=== PATIENT | male | born 1945 | race Caucasian/White ===

== ENCOUNTER → 2018-02-21 | Outpatient (CLI) | payer OTHER ==
[2016-10-31 16:07] VITALS: BP 136/63
[~2018-02-21] MED LIST: NS 100 ML IV 100 ML IV ONE
--- NOTE | 2018-02-21 13:04 | CT ---
CT OF THE ABDOMEN AND PELVIS WITH CONTRAST HISTORY: Abdominal pain with history of esophageal cancer Comparison: None Technique: Multiple axial images of the abdomen and pelvis were obtained from the lung bases to the pubic symphy sis follow the administration of IV contrast as well as oral contrast. Dose reduction techniques inc luding Automated Exposure Control (AEC) and adjustment of mA and kV were utlized. Findings: The heart is normal in size. There is no pericardial effusion. Lung bases are clear without focal con solidation, pleural effusion or pneumothorax. Status post esophagectomy with gastric pull-through. I n the region of the diaphragmatic hiatus there are some shotty lymph nodes including a 2.2 cm lymph n ode on series 4, image 27. Liver and spleen are normal in size, enhancement characteristics and contour. No focal lesions. The p ortal vein is patent. No ductal dilitation. Gallbladder is present. No calcified gallstones or gallbl adder wall thickening. The pancreas is unremarkable. The right adrenal gland is thickened and nodular .. Kidneys enhance symmetrically without hydronephrosis or nephrolithiasis. No bowel obstruction or inflammation. Diverticulosis without definite focal inflammation. IVC filter in place No abnormal appearing mesenteric or retroperitoneal lymph nodes. No free fluid or fluid ivan ections. The bladder is normal in appearance. Prostate not enlarged. No free fluid or abnormal pelvic lymph no michael. No aggressive osseous lesions. IMPRESSION: 1. Status post gastric pull-through with upper abdominal lymph nodes and right adrenal nodularity. T hese findings are nonspecific and malignancy cannot be excluded. Would recommend obtaining prior exam inations for comparison. If priors could be obtained, an addendum could be dictated. Reported By:
== END ==
LOC: RAD 10:34
PROVIDERS: ATTEND Internal Medicine
DX: R10.84 Generalized abdominal pain (principal); C15.5 Malignant neoplasm of lower third of esophagus
CPT/HCPCS: 74177; A4222

== ENCOUNTER 2018-11-03 10:30 | Inpatient (IN) ==
[2018-11-03 12:14] LABS: BASOPHILS # (AUTO) 0.1 X10^3/uL (0.0-0.1); BASOPHILS % (AUTO) 0.6 % (0.2-1.0); EOSINOPHILS # (AUTO) 0.2 x10^3/uL (0.0-0.2); EOSINOPHILS % (AUTO) 0.7 % (0.9-2.9); HEMATOCRIT 39.1 % (42.0-54.0); LYMPHOCYTES # (AUTO) 2.6 X10^3/uL (1.3-2.9); LYMPHOCYTES % (AUTO) 12.9 % (21.0-51.0); MEAN CORPUSCULAR HEMOGLOBIN 31.3 pg (27.0-34.0); MEAN CORPUSCULAR HGB CONC 33.2 g/dL (33.0-35.0); MEAN CORPUSCULAR VOLUME 94.3 fL (80.0-100.0); MONOCYTES % (AUTO) 4.8 % (0.0-13.0); NEUTROPHILS # (AUTO) 16.4 x10^3/uL (2.2-4.8); PLATELET COUNT 212 X10^3/uL (150.0-450.0); RED BLOOD COUNT 4.15 X10^6/uL (4.7-6.0); RED CELL DISTRIBUTION WIDTH 14.9 % (11.6-16.5); WHITE BLOOD COUNT 20.3 X10^3/uL (3.6-10.0)
[2018-11-03] MEDS ORDERED: ZOFRAN INJ 4 MG VIAL IVP ONE (12:19)
--- NOTE | 2018-11-03 12:19 | RAD ---
HISTORY: Abdominal pain, constipation. Study: KUB Comparison: 08/08/2016. Findings: An IVC filter is present extending from the mid L1 to the mid L3 levels. There is an 8.7 mm calcific density seen just lateral to the transverse process of L1 on the right. This may be within the kidney , gallbladder or may be vascular. Bowel gas pattern is nonspecific. There is a 7.6 cm rectal fecal impaction. No bowel obstruction is identified. Degenerative changes are present at multiple lumbar levels. IMPRESSION: No bowel obstruction is seen. 7.6 cm rectal fecal impaction. 8.7 mm calcific density just lateral to the transverse process of L1 on the right. This may be present within the kidney, gallbladder or may be vascular. Reported By:
[2018-11-03 12:23] LABS: ALANINE AMINOTRANSFERASE 17 Units/L (12-78); ALBUMIN 3.5 g/dL (3.4-5.0); ALKALINE PHOSPHATASE 72 Units/L (46-116); ASPARTATE AMINO TRANSFERASE 13 Units/L (15-37); BLOOD UREA NITROGEN 12 mg/dL (7-18); CALCIUM 9.3 mg/dL (8.5-10.1); CARBON DIOXIDE 25.2 mmol/L (21-32); CHLORIDE 91 mmol/L (98-107); CREATININE 0.75 mg/dL (0.70-1.30); SODIUM 126 mmol/L (136-145); TOTAL PROTEIN 7.5 g/dL (6.4-8.2); eGFR NON BLACK RACES > 60 (>60)
[2018-11-03] MEDS ORDERED: ZOFRAN INJ 4 MG VIAL ONE (12:23)
[2018-11-03] MEDS: NS 1000 ML 1,000 ML IV SCH ×2 (12:28→22:50)
--- NOTE | 2018-11-03 12:33 | DR.N/VMALE ---
HPI Time Seen Time Seen by Provider: 11/03/18 11:38 Primary Care Physician Primary Care Physician: YOHANNES ASHRAF Complaints Chief Complaint:: PT C/O HAVING A BOWEL BLOCKAGE FOR SEVERAL WEEKS, AND HE C/O DRINKING 6 BOTTLES OF MAGCITRATE , PT C/O HAVING NAUSEA, BR Self Treatment fo Chief Complaint: PT IS MOANING AND HE CANT TAKE THIS PAIN,,BR Source History Provided: Patient Mode of Arrival Mode of Arrival: Wheelchair Timing Onset of Chief Complaint: 10/14/18 PMH PMH Past Medical History: Yes Past Medical History: Dyslipidemia and Hypertension Past Surgical History: Yes Past Surgical History Comment: ABD CANCER Family History History of Family Medical Conditions: Yes Family Medical History: Heart Failure Social History Does patient currently use any type of tobacco product: No Have you used tobacco products in the last 12 months: No Type of Tobacco Use: None Does any household member use tobacco: No Alcohol Use: None Do you use any recreational Drugs:: No Lives With: Family Lives Where: Home infectious screening In the last 2 months have you had wt loss of >10#?: NO Have you had fever, night sweats or hemotysis?: No Have you traveled outside the country in the last 6 months?: No Isolation: Standard PE Vital Signs Vitals: Temperature 98.1 F Pulse Rate [Right Brachial] 86 Pulse Rate 107 Respiratory Rate 18 Blood Pressure [Right Arm] 119/61 Blood Pressure [Left Arm] 136/63 Blood Pressure 111/55 O2 Sat by Pulse Oximetry 97 ROR Labs Reviewed Laboratory Results Reviewed?: Yes Result Diagrams: 11/03/18 11:53 11/03/18 11:53 Laboratory: WBC 20.3 X10^3/uL (3.6-10.0) H 11/03/18 11:53 RBC 4.15 X10^6/uL (4.7-6.0) L 11/03/18 11:53 Hgb 13.0 g/dL (13.5-18.0) L 11/03/18 11:53 Hct 39.1 % (42.0-54.0) L 11/03/18 11:53 MCV 94.3 fL (80.0-100.0) 11/03/18 11:53 MCH 31.3 pg (27.0-34.0) 11/03/18 11:53 MCHC 33.2 g/dL (33.0-35.0) 11/03/18 11:53 RDW 14.9 % (11.6-16.5) 11/03/18 11:53 Plt Count 212 X10^3/uL (150.0-450.0) 11/03/18 11:53 MPV 8.0 fL (7.4-11.0) 11/03/18 11:53 Neut % (Auto) 81.0 % (42.0-75.0) H 11/03/18 11:53 Lymph % (Auto) 12.9 % (21.0-51.0) L 11/03/18 11:53 [place] % (Auto) 4.8 % (0.0-13.0) 11/03/18 11:53 Eos % (Auto) 0.7 % (0.9-2.9) L 11/03/18 11:53 Baso % (Auto) 0.6 % (0.2-1.0) 11/03/18 11:53 Neut # (Auto) 16.4 x10^3/uL (2.2-4.8) H 11/03/18 11:53 Lymph # (Auto) 2.6 X10^3/uL (1.3-2.9) 11/03/18 11:53 [place] # (Auto) 1.0 x10^3/uL (0.3-0.8) H 11/03/18 11:53 Eos # (Auto) 0.2 x10^3/uL (0.0-0.2) 11/03/18 11:53 Baso # (Auto) 0.1 X10^3/uL (0.0-0.1) 11/03/18 11:53 Absolute Nucleated RBC 0.0 /100WBC 11/03/18 11:53 INR Target Range - 11/03/18 11:53 INR 3.76 (0.8-1.3) H 11/03/18 11:53 Sodium 126 mmol/L (136-145) L 11/03/18 11:53 Corrected Sodium TNP 11/03/18 11:53 Potassium 5.0 mmol/L (3.5-5.1) 11/03/18 11:53 Chloride 91 mmol/L (98-107) L 11/03/18 11:53 Carbon Dioxide 25.2 mmol/L (21-32) 11/03/18 11:53 BUN 12 mg/dL (7-18) 11/03/18 11:53 Creatinine 0.75 mg/dL (0.70-1.30) 11/03/18 11:53 Est GFR (MDRD) Af Amer > 60 (>60) 11/03/18 11:53 Est GFR (MDRD) Non-Af > 60 (>60) 11/03/18 11:53 Glucose 82 mg/dL (65-99) 11/03/18 11:53 Calcium 9.3 mg/dL (8.5-10.1) 11/03/18 11:53 Corrected Calcium TNP 11/03/18 11:53 Total Bilirubin 0.80 mg/dL (0.2-1.0) 11/03/18 11:53 AST 13 Units/L (15-37) L 11/03/18 11:53 ALT 17 Units/L (12-78) 11/03/18 11:53 Alkaline Phosphatase 72 Units/L (46-116) 11/03/18 11:53 Total Protein 7.5 g/dL (6.4-8.2) 11/03/18 11:53 Albumin 3.5 g/dL (3.4-5.0) 11/03/18 11:53 Globulin 4.0 g/dL (2.5-4.5) 11/03/18 11:53 Albumin/Globulin Ratio 0.9 Ratio (1.1-2.1) L 11/03/18 11:53 Digoxin 1.09 ng/mL (0.9-2) 11/03/18 11:53 Other Results Comments: An IVC filter is present extending from the mid L1 to the mid L3 levels. There is an 8.7mm calcific density seen just lateral to the transv erse process of L1 on the right. This may be within the kidney, gallbladder or may be vascular. Bowel gas pattern is nonspecific. There is a 7.6cm rectal fecal impaction. No bowel obstruction is identified. Degenerative changes are present at multiple lumbar levels. Diagnosis Discharge Problem: Fecal impaction
[2018-11-03] MEDS ORDERED: PHENERGAN INJ 25 MG IV PRN (12:34)
[2018-11-03] MEDS ORDERED: ZOFRAN INJ 4 MG VIAL IVP PRN (12:34)
[2018-11-03] MEDS ORDERED: METHOTREXATE PO SCH (14:34)
[2018-11-03] MEDS: COLACE CAP 100 MG PO SCH (21:30)
[2018-11-03] MEDS: MILK OF MAGNESIA PO SCH (21:30)
[2018-11-03] MEDS: ZANTAC PO SCH (21:31)
[2018-11-03] MEDS: PROPAFENONE 325 MG PO SCH (21:44)
[2018-11-03] MEDS: NORCO 5/325 MG TAB PO PRN (22:50)
[2018-11-04 06:03] LABS: BASOPHILS # (AUTO) 0.1 X10^3/uL (0.0-0.1); BASOPHILS % (AUTO) 0.6 % (0.2-1.0); EOSINOPHILS # (AUTO) 0.2 x10^3/uL (0.0-0.2); EOSINOPHILS % (AUTO) 2.1 % (0.9-2.9); HEMATOCRIT 31.1 % (42.0-54.0); HEMOGLOBIN 10.6 g/dL (13.5-18.0); LYMPHOCYTES # (AUTO) 2.5 X10^3/uL (1.3-2.9); LYMPHOCYTES % (AUTO) 24.8 % (21.0-51.0); MEAN CORPUSCULAR HEMOGLOBIN 31.8 pg (27.0-34.0); MEAN CORPUSCULAR HGB CONC 34.1 g/dL (33.0-35.0); MEAN CORPUSCULAR VOLUME 93.3 fL (80.0-100.0); MEAN PLATELET VOLUME 8.3 fL (7.4-11.0); MONOCYTES % (AUTO) 10.1 % (0.0-13.0); NEUTROPHILS # (AUTO) 6.4 x10^3/uL (2.2-4.8); NEUTROPHILS % (AUTO) 62.4 % (42.0-75.0); PLATELET COUNT 142 X10^3/uL (150.0-450.0); RED BLOOD COUNT 3.33 X10^6/uL (4.7-6.0); RED CELL DISTRIBUTION WIDTH 14.9 % (11.6-16.5); WHITE BLOOD COUNT 10.2 X10^3/uL (3.6-10.0)
[2018-11-04 06:08] LABS: ALANINE AMINOTRANSFERASE 15 Units/L (12-78); ALBUMIN 2.7 g/dL (3.4-5.0); ALKALINE PHOSPHATASE 57 Units/L (46-116); ASPARTATE AMINO TRANSFERASE 13 Units/L (15-37); BLOOD UREA NITROGEN 9 mg/dL (7-18); CARBON DIOXIDE 25.8 mmol/L (21-32); CHLORIDE 95 mmol/L (98-107); CREATININE 0.59 mg/dL (0.70-1.30); SODIUM 128 mmol/L (136-145); TOTAL PROTEIN 5.7 g/dL (6.4-8.2); eGFR NON BLACK RACES > 60 (>60)
[2018-11-04] MEDS ORDERED: COUMADIN TAB 2.5 MG PO SCH (09:00)
[2018-11-04] MEDS: MILK OF MAGNESIA PO SCH ×2 (09:07→20:31)
[2018-11-04] MEDS: LANOXIN PO SCH (09:07)
[2018-11-04] MEDS: PROTONIX TAB 40 MG PO SCH (09:08)
[2018-11-04] MEDS: PROPAFENONE 325 MG PO SCH ×2 (09:12→20:30)
[2018-11-04 10:20] VITALS: BMI 17.7
--- NOTE | 2018-11-04 13:22 | RAD ---
HISTORY: Abdominal pain and constipation Study: Single flat view of the abdomen. Comparison: None Findings: Evaluation of the abdomen demonstrates a normal bowel gas pattern. No free air. No pathological soft tissue mass or calcification can be observed. The bony structures are grossly intact. IMPRESSION: 1. No evidence for acute abdominal pathology identified. Reported By:
--- NOTE | 2018-11-04 14:00 | DR.H&P ---
H&P - History & Physical for Day of: H&P Date: 11/03/18 - Chief Complaint Chief Complaint: abdominal pain, constipation - History of Present Illness History of Present Illness: 73 WM ER ADMISSION WITH CO LOWER ABDOMINAL PAIN WITH CO CONSTIPATION AND POOR APPETITE. PT HAS CHRONIC CONSTIPATION DUE TO OPIOID PAIN CONTROL. PT HAS PMH OF OA, HTN, AFIB. PT HAD CT ER WITH FECAL IMPACTION. PT ADMITTED FOR TREATMENT OF ACUTE ILLNESS. - Past Medical History Past Medical History: Hypertension, Dyslipidemia Additional Medical History: Atrial fibrillation, Esophageal Cancer, Chemo The rapy, DVT, PE - Past Surgical History Additional Surgical History: IVC filter - Family History Family Medical History: Heart Failure - Social History Does patient currently use any type of tobacco product: No Have you used tobacco products in the last 12 months: No Type of Tobacco Use: None Does any household member use tobacco: No Alcohol Use: None Drug Use: None - Medications Home Medications: No Known Drug Allergies Allergy (Verified 11/03/18 10:42) CONTINUE taking the following medications digoxin 0.125 mg PO DAILY 11/03/18 [History] pantoprazole 40 mg PO DAILY 11/03/18 [History] ranitidine HCl 150 mg PO HS 11/03/18 [History] tamsulosin 0.4 mg PO HS 11/03/18 [History] - Review of Systems Constitutional: Weakness Eyes: No Symptoms Reported ENT: No Symptoms Reported Respiratory: No Symptoms Reported Cardiovascular: No Symptoms Reported Gastrointestinal: Nausea, Vomiting, Abdominal Pain, Constipation Genitourinary: No Symptoms Reported Musculoskeletal: Back Pain Skin: No Symptoms Reported Neurological: No Symptoms Reported - Physical Exam Vital Signs: Temperature 97.8 F Pulse Rate [Right Brachial] 82 Pulse Rate 86 Respiratory Rate 20 Blood Pressure [Right Arm] 132/67 Blood Pressure [Left Arm] 136/63 Blood Pressure 111/55 O2 Sat by Pulse Oximetry 95 Oriented: Normal Eyes: Normal Ear: Normal Nose: Normal Throat: Normal Respiratory: Clear Throughout Cardiovascular: Normal : Normal Auscultation: Bowel Sounds: Normal Palpation: Normal Tenderness: Normal Skin: Decreased Turgur Musculoskeletal: Right, Left, Leg, Back:Lumbar, Instability Psychiatric: Normal Mood Description: Calm Speech Pattern: Clear - Assessment/Plan (1) Abdominal pain Status: Acute Plan: R/T FECAL IMPACTION. DIGITAL DISIMPACTION, ENCOUAGE ORAL HYDRATION. VERIFY HOME MEDS, CLEAR LIQUIDS, NAUSEA CONTROL. REPEAT AM KUB (2) Fecal impaction Status: Acute (3) CHF (congestive heart failure) Qualifiers: Qualified Code(s): I50.9 - Heart failure, unspecified Status: Acute (4) Esophageal cancer Status: Chronic (5) COPD (chronic obstructive pulmonary disease) Status: Chronic (6) History of deep venous thrombosis or pulmonary embolus Status: Chronic (7) Atrial fibrillation Status: Chronic (8) Nausea & vomiting Status: Acute - Allergies Allergies/Adverse Reactions: Allergies Allergy/AdvReac Type Severity Reaction Status Date / Time No Known Drug Allergies Allergy Verified 11/03/18 10:42
[2018-11-04] MEDS ORDERED: GLYCERIN INFANT SUPP ONE (15:07)
[2018-11-04] MEDS: NS 1000 ML 1,000 ML IV SCH ×2 (16:02→20:31)
[2018-11-04] MEDS ORDERED: RESTORIL CAP 15 MG PO PRN (16:03)
[2018-11-04] MEDS: GYLCERIN ADULT SUPP RECTAL SCH (16:52)
[2018-11-04] MEDS ORDERED: NULYTELY or GO-LYTELY PO SCH (19:00)
[2018-11-04] MEDS: COLACE CAP 100 MG PO SCH (20:30)
[2018-11-04] MEDS: ZANTAC PO SCH (20:31)
[2018-11-04] MEDS: MEGACE PO SCH (20:31)
[2018-11-05] MEDS: NS 1000 ML 1,000 ML IV SCH ×3 (06:05→20:32)
[2018-11-05 06:07] LABS: BASOPHILS % (AUTO) 0.5 % (0.2-1.0); EOSINOPHILS # (AUTO) 0.1 x10^3/uL (0.0-0.2); EOSINOPHILS % (AUTO) 1.1 % (0.9-2.9); HEMATOCRIT 32.2 % (42.0-54.0); HEMOGLOBIN 10.9 g/dL (13.5-18.0); LYMPHOCYTES # (AUTO) 1.8 X10^3/uL (1.3-2.9); LYMPHOCYTES % (AUTO) 18.5 % (21.0-51.0); MEAN CORPUSCULAR VOLUME 94.1 fL (80.0-100.0); MEAN PLATELET VOLUME 8.3 fL (7.4-11.0); MONOCYTES # (AUTO) 0.9 x10^3/uL (0.3-0.8); MONOCYTES % (AUTO) 9.6 % (0.0-13.0); NEUTROPHILS # (AUTO) 6.7 x10^3/uL (2.2-4.8); NEUTROPHILS % (AUTO) 70.3 % (42.0-75.0); PLATELET COUNT 137 X10^3/uL (150.0-450.0); RED BLOOD COUNT 3.42 X10^6/uL (4.7-6.0); RED CELL DISTRIBUTION WIDTH 14.7 % (11.6-16.5); WHITE BLOOD COUNT 9.6 X10^3/uL (3.6-10.0)
[2018-11-05 06:20] LABS: ALANINE AMINOTRANSFERASE 16 Units/L (12-78); ALBUMIN 2.7 g/dL (3.4-5.0); ALKALINE PHOSPHATASE 63 Units/L (46-116); ASPARTATE AMINO TRANSFERASE 16 Units/L (15-37); BLOOD UREA NITROGEN 4 mg/dL (7-18); CALCIUM 7.7 mg/dL (8.5-10.1); CHLORIDE 95 mmol/L (98-107); COR CA(FOR HYPOALB) 8.7 mg/dL (8.5-10.1); CREATININE 0.55 mg/dL (0.70-1.30); SODIUM 130 mmol/L (136-145); TOTAL PROTEIN 5.9 g/dL (6.4-8.2); eGFR NON BLACK RACES > 60 (>60)
[2018-11-05] MEDS ORDERED: KLOR-CON PO PRN (07:30)
[2018-11-05] MEDS ORDERED: POTASSIUM CHL 40 MEQ/NS 0.45% 500 ML IV PRN (07:30)
[2018-11-05] MEDS ORDERED: K-RIDER 10 MEQ/NS 100 ML 10 MEQ/100 ML BAG IV PRN (07:30)
[2018-11-05] MEDS ORDERED: POTASSIUM CHLORIDE LIQ 20 MEQ UDC PO PRN (07:30)
[2018-11-05] MEDS ORDERED: POTASSIUM CHL 60 MEQ/NS 0.45% 500 ML IV PRN (07:30)
[2018-11-05] MEDS ORDERED: MICRO K EXTEN CAP 10 MEQ PO PRN (07:30)
[2018-11-05] MEDS: LANOXIN PO SCH (09:04)
[2018-11-05] MEDS: PROTONIX TAB 40 MG PO SCH (09:04)
[2018-11-05] MEDS: MAGNESIUM SULFATE 1 GRAM/100 mL PREMIX 1 GM/100 ML BAG IV PRN ×2 (09:05→10:43)
[2018-11-05] MEDS: NORCO 5/325 MG TAB PO PRN (09:07)
[2018-11-05] MEDS: MEGACE PO SCH ×2 (09:07→20:32)
[2018-11-05] MEDS: PROPAFENONE 325 MG PO SCH ×2 (09:08→20:33)
[2018-11-05] MEDS: MILK OF MAGNESIA PO SCH ×2 (09:09→20:32)
[2018-11-05] MEDS: GYLCERIN ADULT SUPP RECTAL SCH (09:09)
[2018-11-05] MEDS: MORPHINE SULFATE INJ 2 MG INJ IVP PRN (13:17)
[2018-11-05] MEDS: K-DUR TAB 20 MEQ PO PRN (13:17)
[2018-11-05] MEDS ORDERED: GYLCERIN ADULT SUPP RECTAL PRN (15:00)
--- NOTE | 2018-11-05 18:02 | PCM.PROG ---
Progress Note - Progress Note for Day of Date of Exam: 11/04/18 - Subjective Subjective: 73 [facility] ER ADMISSION ON 11/03 WITH INTRACTABLE ABDOMINAL PAIN AND CONSTIPATION. PT HAS CT WITH FECAL IMPACTION, NURSING STAFF REPORTS MINIMAL BM, REPEAT KUB WITHOUT FINDING OF CONSTIPATION. PT CONTINUES WITH CO N/V. WILL CONTINUE CLEAR LIQUIDS AND GOLYTLEY. REPEAT AM KUB AND PAIN CONTROL - Past Medical Family Social History Past Med/Fam/Surg Hx: No changes since H&P Allergies: Allergies No Known Drug Allergies Allergy (Verified 11/03/18 10:42) - Review of Systems ROS: No change since H&P - Vital Signs and I&O's Vital Signs: Temperature 97.6 F Pulse Rate [Right Brachial] 54 Pulse Rate 86 Respiratory Rate 18 Blood Pressure [Right Arm] 113/57 Blood Pressure [Left Arm] 136/63 Blood Pressure 111/55 O2 Sat by Pulse Oximetry 95 Intake and Output: Intake & Output 11/03/18 11/04/18 11/05/18 11/06/18 11:59 11:59 11:59 11:59 Intake Total 460 / 460 5570 / 5570 480 / 480 Balance 460 / 460 5570 / 5570 480 / 480 - Physical Exam Oriented: Normal Eyes: Normal Ear: Normal Nose: Normal Throat: Normal Respiratory: Diminished Cardiovascular: Normal : Normal Auscultation: Bowel Sounds: Decreased Tenderness: Diffuse, Mild Skin: Decreased Turgur Musculoskeletal: Right, Left, Leg, Back:Lumbar, Instability Psychiatric: Normal Mood Description: Calm Speech Pattern: Clear, Appropriate - Laboratory and Diagnostics Result Diagrams: 11/05/18 04:37 11/05/18 15:28 Labs: Laboratory WBC 9.6 X10^3/uL (3.6-10.0) 11/05/18 04:37 RBC 3.42 X10^6/uL (4.7-6.0) L 11/05/18 04:37 Hgb 10.9 g/dL (13.5-18.0) L 11/05/18 04:37 Hct 32.2 % (42.0-54.0) L 11/05/18 04:37 MCV 94.1 fL (80.0-100.0) 11/05/18 04:37 MCH 32.0 pg (27.0-34.0) 11/05/18 04:37 MCHC 34.0 g/dL (33.0-35.0) 11/05/18 04:37 RDW 14.7 % (11.6-16.5) 11/05/18 04:37 Plt Count 137 X10^3/uL (150.0-450.0) L 11/05/18 04:37 MPV 8.3 fL (7.4-11.0) 11/05/18 04:37 Neut % (Auto) 70.3 % (42.0-75.0) 11/05/18 04:37 Lymph % (Auto) 18.5 % (21.0-51.0) L 11/05/18 04:37 [place] % (Auto) 9.6 % (0.0-13.0) 11/05/18 04:37 Eos % (Auto) 1.1 % (0.9-2.9) 11/05/18 04:37 Baso % (Auto) 0.5 % (0.2-1.0) 11/05/18 04:37 Neut # (Auto) 6.7 x10^3/uL (2.2-4.8) H 11/05/18 04:37 Lymph # (Auto) 1.8 X10^3/uL (1.3-2.9) 11/05/18 04:37 [place] # (Auto) 0.9 x10^3/uL (0.3-0.8) H 11/05/18 04:37 Eos # (Auto) 0.1 x10^3/uL (0.0-0.2) 11/05/18 04:37 Baso # (Auto) 0.0 X10^3/uL (0.0-0.1) 11/05/18 04:37 Absolute Nucleated RBC 0.0 /100WBC 11/05/18 04:37 INR Target Range - 11/05/18 04:37 INR 3.42 (0.8-1.3) H 11/05/18 04:37 Sodium 130 mmol/L (136-145) L 11/05/18 04:37 Corrected Sodium TNP 11/05/18 04:37 Potassium 3.2 mmol/L (3.5-5.1) L 11/05/18 15:28 Chloride 95 mmol/L (98-107) L 11/05/18 04:37 Carbon Dioxide 27.0 mmol/L (21-32) 11/05/18 04:37 BUN 4 mg/dL (7-18) L 11/05/18 04:37 Creatinine 0.55 mg/dL (0.70-1.30) L 11/05/18 04:37 Est GFR (MDRD) Af Amer > 60 (>60) 11/05/18 04:37 Est GFR (MDRD) Non-Af > 60 (>60) 11/05/18 04:37 Glucose 86 mg/dL (65-99) 11/05/18 04:37 Calcium 7.7 mg/dL (8.5-10.1) L 11/05/18 04:37 Corrected Calcium 8.7 mg/dL (8.5-10.1) 11/05/18 04:37 Magnesium 1.6 mg/dL (1.7-2.9) L 11/05/18 06:37 Total Bilirubin 0.50 mg/dL (0.2-1.0) 11/05/18 04:37 AST 16 Units/L (15-37) 11/05/18 04:37 ALT 16 Units/L (12-78) 11/05/18 04:37 Alkaline Phosphatase 63 Units/L (46-116) 11/05/18 04:37 Total Protein 5.9 g/dL (6.4-8.2) L 11/05/18 04:37 Albumin 2.7 g/dL (3.4-5.0) L 11/05/18 04:37 Globulin 3.2 g/dL (2.5-4.5) 11/05/18 04:37 Albumin/Globulin Ratio 0.8 Ratio (1.1-2.1) L 11/05/18 04:37 Digoxin 1.09 ng/mL (0.9-2) 11/03/18 11:53 - Plan (1) Abdominal pain Status: Acute Plan: R/T FECAL IMPACTION. DIGITAL DISIMPACTION, ENCOUAGE ORAL HYDRATION. VERIFY HOME MEDS, CLEAR LIQUIDS, NAUSEA CONTROL. REPEAT AM KUB. SHAFFER (2) Fecal impaction Status: Acute (3) CHF (congestive heart failure) Status: Acute Qualifiers: Qualified Code(s): I50.9 - Heart failure, unspecified (4) Esophageal cancer Status: Chronic (5) COPD (chronic obstructive pulmonary disease) Status: Chronic (6) History of deep venous thrombosis or pulmonary embolus Status: Chronic (7) Atrial fibrillation Status: Chronic (8) Nausea & vomiting Status: Acute
[2018-11-05] MEDS: COLACE CAP 100 MG PO SCH (20:32)
[2018-11-05] MEDS: ZANTAC PO SCH (20:32)
[2018-11-05] MEDS: PERCOCET TAB 5/325 MG PO PRN (20:35)
[2018-11-06] MEDS: NS 1000 ML 1,000 ML IV SCH ×3 (05:38→20:02)
[2018-11-06 06:01] LABS: BASOPHILS % (AUTO) 0.3 % (0.2-1.0); EOSINOPHILS # (AUTO) 0.1 x10^3/uL (0.0-0.2); EOSINOPHILS % (AUTO) 1.2 % (0.9-2.9); HEMATOCRIT 34.2 % (42.0-54.0); HEMOGLOBIN 11.4 g/dL (13.5-18.0); LYMPHOCYTES # (AUTO) 3.4 X10^3/uL (1.3-2.9); MEAN CORPUSCULAR HEMOGLOBIN 31.5 pg (27.0-34.0); MEAN CORPUSCULAR HGB CONC 33.4 g/dL (33.0-35.0); MEAN CORPUSCULAR VOLUME 94.3 fL (80.0-100.0); MEAN PLATELET VOLUME 7.7 fL (7.4-11.0); MONOCYTES # (AUTO) 1.2 x10^3/uL (0.3-0.8); MONOCYTES % (AUTO) 9.8 % (0.0-13.0); NEUTROPHILS # (AUTO) 7.4 x10^3/uL (2.2-4.8); NEUTROPHILS % (AUTO) 60.7 % (42.0-75.0); PLATELET COUNT 176 X10^3/uL (150.0-450.0); RED BLOOD COUNT 3.62 X10^6/uL (4.7-6.0); RED CELL DISTRIBUTION WIDTH 14.6 % (11.6-16.5); WHITE BLOOD COUNT 12.2 X10^3/uL (3.6-10.0)
[2018-11-06 06:10] LABS: ALANINE AMINOTRANSFERASE 15 Units/L (12-78); ALBUMIN 2.5 g/dL (3.4-5.0); ALKALINE PHOSPHATASE 61 Units/L (46-116); ASPARTATE AMINO TRANSFERASE 13 Units/L (15-37); BLOOD UREA NITROGEN 3 mg/dL (7-18); CALCIUM 7.7 mg/dL (8.5-10.1); CARBON DIOXIDE 25.7 mmol/L (21-32); CHLORIDE 97 mmol/L (98-107); COR CA(FOR HYPOALB) 8.9 mg/dL (8.5-10.1); CREATININE 0.54 mg/dL (0.70-1.30); MAGNESIUM 1.9 mg/dL (1.7-2.9); SODIUM 132 mmol/L (136-145); TOTAL PROTEIN 5.9 g/dL (6.4-8.2); eGFR NON BLACK RACES > 60 (>60)
[2018-11-06] MEDS: K-DUR TAB 20 MEQ PO PRN (06:27)
[2018-11-06] MEDS: MAGNESIUM SULFATE 1 GRAM/100 mL PREMIX 1 GM/100 ML BAG IV PRN ×2 (06:33→09:31)
[2018-11-06] MEDS: LANOXIN PO SCH (09:25)
[2018-11-06] MEDS: MILK OF MAGNESIA PO SCH ×2 (09:25→20:04)
[2018-11-06] MEDS: MEGACE PO SCH ×2 (09:26→20:03)
[2018-11-06] MEDS: PROTONIX TAB 40 MG PO SCH (09:26)
[2018-11-06] MEDS: PROPAFENONE 325 MG PO SCH ×2 (09:28→20:04)
[2018-11-06] MEDS: PERCOCET TAB 5/325 MG PO PRN ×2 (12:37→20:03)
[2018-11-06] MEDS ORDERED: CIPRO IV 400 MG PREMIX* 400 MG/200 ML IV.SOLN. IV SCH (18:00)
[2018-11-06 19:32] LABS: BILIRUBIN,URINE NEGATIVE (NEGATIVE); BLOOD/HEMOGLOBIN,URINE 1+ (NEGATIVE); GLUCOSE, URINE NEGATIVE (NEGATIVE); KETONES,URINE 1+ (NEGATIVE); LEUKOCYTE ESTERASE ,URINE NEGATIVE (NEGATIVE); NITRITES,URINE NEGATIVE (NEGATIVE); PROTEIN,URINE NEGATIVE (NEGATIVE); UROBILINOGEN,URINE NORMAL (NORMAL)
[2018-11-06 19:41] LABS: APPEARANCE,URINE CLEAR (CLEAR); BACTERIA,URINE NEGATIVE /HPF (NEGATIVE); COLOR,URINE YELLOW (YELLOW); RBC,URINE 0-2 /HPF (NONE SEEN); SQUAMOUS EPITHELIAL CELL,UR RARE /HPF (NEGATIVE)
[2018-11-06] MEDS: ZANTAC PO SCH (20:03)
[2018-11-06] MEDS: COLACE CAP 100 MG PO SCH (20:04)
[2018-11-06] MEDS: ZOSYN VIAL 3.375 GRAMS 3.375 G in NS 100 ML IV + SPIKE MINIBAG* 100 ML IV SCH (21:14)
[2018-11-07] MEDS: ZOSYN VIAL 3.375 GRAMS 3.375 G in NS 100 ML IV + SPIKE MINIBAG* 100 ML IV SCH ×3 (05:13→21:26)
[2018-11-07] MEDS: NS 1000 ML 1,000 ML IV SCH ×4 (05:13→21:26)
[2018-11-07 05:25] LABS: BASOPHILS # (AUTO) 0.1 X10^3/uL (0.0-0.1); BASOPHILS % (AUTO) 0.7 % (0.2-1.0); EOSINOPHILS # (AUTO) 0.2 x10^3/uL (0.0-0.2); EOSINOPHILS % (AUTO) 2.3 % (0.9-2.9); HEMATOCRIT 31.9 % (42.0-54.0); HEMOGLOBIN 10.8 g/dL (13.5-18.0); LYMPHOCYTES # (AUTO) 1.7 X10^3/uL (1.3-2.9); LYMPHOCYTES % (AUTO) 22.6 % (21.0-51.0); MEAN CORPUSCULAR HEMOGLOBIN 31.8 pg (27.0-34.0); MEAN CORPUSCULAR VOLUME 93.6 fL (80.0-100.0); MEAN PLATELET VOLUME 7.6 fL (7.4-11.0); MONOCYTES # (AUTO) 0.7 x10^3/uL (0.3-0.8); MONOCYTES % (AUTO) 9.6 % (0.0-13.0); NEUTROPHILS # (AUTO) 4.8 x10^3/uL (2.2-4.8); NEUTROPHILS % (AUTO) 64.8 % (42.0-75.0); PLATELET COUNT 147 X10^3/uL (150.0-450.0); RED BLOOD COUNT 3.41 X10^6/uL (4.7-6.0); RED CELL DISTRIBUTION WIDTH 14.4 % (11.6-16.5); WHITE BLOOD COUNT 7.5 X10^3/uL (3.6-10.0)
[2018-11-07 05:38] LABS: ALANINE AMINOTRANSFERASE 15 Units/L (12-78); ALBUMIN 2.3 g/dL (3.4-5.0); ALKALINE PHOSPHATASE 63 Units/L (46-116); ASPARTATE AMINO TRANSFERASE 15 Units/L (15-37); BLOOD UREA NITROGEN 4 mg/dL (7-18); CALCIUM 7.8 mg/dL (8.5-10.1); CARBON DIOXIDE 27.6 mmol/L (21-32); CHLORIDE 101 mmol/L (98-107); COR CA(FOR HYPOALB) 9.2 mg/dL (8.5-10.1); CREATININE 0.55 mg/dL (0.70-1.30); SODIUM 134 mmol/L (136-145); TOTAL PROTEIN 5.4 g/dL (6.4-8.2); eGFR NON BLACK RACES > 60 (>60)
[2018-11-07] MEDS: PERCOCET TAB 5/325 MG PO PRN (08:53)
[2018-11-07] MEDS: MEGACE PO SCH ×3 (10:48→21:27)
[2018-11-07] MEDS: PROPAFENONE 325 MG PO SCH ×2 (10:48→22:20)
[2018-11-07] MEDS: LANOXIN PO SCH ×2 (10:48→12:46)
[2018-11-07] MEDS: PROTONIX TAB 40 MG PO SCH ×2 (10:48→12:45)
[2018-11-07] MEDS: MILK OF MAGNESIA PO SCH ×3 (10:49→21:17)
--- NOTE | 2018-11-07 12:23 | CT ---
CT OF THE ABDOMEN AND PELVIS WITH CONTRAST HISTORY: Abdominal pain. History of esophageal cancer. Comparison: None Technique: Multiple axial images of the abdomen and pelvis were obtained from the lung bases to the pubic symphysis follow the administration of IV contrast as well as oral contrast. Dose reduction techniques including Automated Exposure Control (AEC) and adjustment of mA and kV were utlized. Findings: The heart is normal in size. There is no pericardial effusion. Bilateral large pleural effusions. Dilation of the esophagus status post surgery. There is a large portion of the stomach resides within the chest and is dilated with ingested contents. The small bowel appears predominantly decompressed. 1.3 cm left upper lobe nodule on series 4, image 4 Liver and spleen are normal in size, enhancement characteristics and contour. No focal lesions. The portal vein is patent. No ductal dilitation. Gallbladder is present. No calcified gallstones or gallbladder wall thickening. The pancreas is unremarkable. Adrenal glands are normal. Kidneys enhance symmetrically without hydronephrosis or nephrolithiasis. No abnormal appearing mesenteric or retroperitoneal lymph nodes. No free fluid or fluid collections. The bladder is normal in appearance. Prostate not enlarged. No free fluid or abnormal pelvic lymph nodes. No aggressive osseous lesions. IMPRESSION: 1. Large hiatal hernia which may be postsurgical. The stomach within the chest is dilated and the small bowel is decompressed suggesting possible gastric obstruction. Correlate clinically. 2. 1.3 cm spiculated left upper lobe nodule which is concerning for malignancy. 3. Moderate bilateral pleural effusions. Reported By:
--- NOTE | 2018-11-07 14:52 | PCM.PROG ---
Progress Note - Progress Note for Day of Date of Exam: 11/05/18 - Subjective Subjective: 73 WM ER ADMISSION ON 11/03 WITH INTRACTABLE ABDOMINAL PAIN AND CONSTIPATION. PT HAS CT WITH FECAL IMPACTION, NURSING STAFF REPORTS MINIMAL BM, REPEAT KUB WITHOUT FINDING OF CONSTIPATION. PT CONTINUES WITH CO NAUSEA WITH IMPROVED VOMTING. PT DENIES ABDOMINAL PAIN BUT CO BACK PAIN. NURSING STAFF REPORTS PT HAS HAD MULTPLE WATERY BM'S AFTER GOLYTELY. WILL CONTINUE CLEAR LIQUIDS AND ADVANCE DIET TOLERATED, RESUMED HOME PO PAIN MEDICATION FOR CHRONIC BACK PAIN - Past Medical Family Social History Past Med/Fam/Surg Hx: No changes since H&P Allergies: Allergies No Known Drug Allergies Allergy (Verified 11/03/18 10:42) - Review of Systems ROS: No change since H&P - Vital Signs and I&O's Vital Signs: Temperature 97.6 F Pulse Rate [Right Brachial] 93 Pulse Rate 82 Respiratory Rate 18 Blood Pressure [Right Arm] 145/80 Blood Pressure [Left Arm] 136/63 Blood Pressure 111/55 O2 Sat by Pulse Oximetry 95 Intake and Output: Intake & Output 11/05/18 11/06/18 11/07/18 11/08/18 11:59 11:59 11:59 11:59 Intake Total 5570 / 5570 19992 / 3642 Balance 5570 / 5570 1999 / 3641 - Physical Exam Oriented: Normal Eyes: Normal Ear: Normal Nose: Normal Throat: Normal Respiratory: Diminished Cardiovascular: Normal : Normal Auscultation: Bowel Sounds: Decreased Tenderness: Epigastric, Mild Skin: Decreased Turgur Musculoskeletal: Right, Left, Leg, Back:Lumbar, Instability Psychiatric: Normal Mood Description: Calm Speech Pattern: Clear, Appropriate - Laboratory and Diagnostics Result Diagrams: 11/07/18 05:05 11/07/18 05:05 Labs: Laboratory WBC 7.5 X10^3/uL (3.6-10.0) 11/07/18 05:05 RBC 3.41 X10^6/uL (4.7-6.0) L 11/07/18 05:05 Hgb 10.8 g/dL (13.5-18.0) L 11/07/18 05:05 Hct 31.9 % (42.0-54.0) L 11/07/18 05:05 MCV 93.6 fL (80.0-100.0) 11/07/18 05:05 MCH 31.8 pg (27.0-34.0) 11/07/18 05:05 MCHC 34.0 g/dL (33.0-35.0) 11/07/18 05:05 RDW 14.4 % (11.6-16.5) 11/07/18 05:05 Plt Count 147 X10^3/uL (150.0-450.0) L 11/07/18 05:05 MPV 7.6 fL (7.4-11.0) 11/07/18 05:05 Neut % (Auto) 64.8 % (42.0-75.0) 11/07/18 05:05 Lymph % (Auto) 22.6 % (21.0-51.0) 11/07/18 05:05 [place] % (Auto) 9.6 % (0.0-13.0) 11/07/18 05:05 Eos % (Auto) 2.3 % (0.9-2.9) 11/07/18 05:05 Baso % (Auto) 0.7 % (0.2-1.0) 11/07/18 05:05 Neut # (Auto) 4.8 x10^3/uL (2.2-4.8) 11/07/18 05:05 Lymph # (Auto) 1.7 X10^3/uL (1.3-2.9) 11/07/18 05:05 [place] # (Auto) 0.7 x10^3/uL (0.3-0.8) 11/07/18 05:05 Eos # (Auto) 0.2 x10^3/uL (0.0-0.2) 11/07/18 05:05 Baso # (Auto) 0.1 X10^3/uL (0.0-0.1) 11/07/18 05:05 Absolute Nucleated RBC 0.0 /100WBC 11/07/18 05:05 INR Target Range - 11/05/18 04:37 INR 3.42 (0.8-1.3) H 11/05/18 04:37 Sodium 134 mmol/L (136-145) L 11/07/18 05:05 Corrected Sodium TNP 11/07/18 05:05 Potassium 4.6 mmol/L (3.5-5.1) 11/07/18 05:05 Chloride 101 mmol/L (98-107) 11/07/18 05:05 Carbon Dioxide 27.6 mmol/L (21-32) 11/07/18 05:05 BUN 4 mg/dL (7-18) L 11/07/18 05:05 Creatinine 0.55 mg/dL (0.70-1.30) L 11/07/18 05:05 Est GFR (MDRD) Af Amer > 60 (>60) 11/07/18 05:05 Est GFR (MDRD) Non-Af > 60 (>60) 11/07/18 05:05 Glucose 93 mg/dL (65-99) 11/07/18 05:05 Calcium 7.8 mg/dL (8.5-10.1) L 11/07/18 05:05 Corrected Calcium 9.2 mg/dL (8.5-10.1) 11/07/18 05:05 Magnesium 1.9 mg/dL (1.7-2.9) 11/06/18 05:30 Total Bilirubin 0.40 mg/dL (0.2-1.0) 11/07/18 05:05 AST 15 Units/L (15-37) 11/07/18 05:05 ALT 15 Units/L (12-78) 11/07/18 05:05 Alkaline Phosphatase 63 Units/L (46-116) 11/07/18 05:05 Total Protein 5.4 g/dL (6.4-8.2) L 11/07/18 05:05 Albumin 2.3 g/dL (3.4-5.0) L 11/07/18 05:05 Globulin 3.1 g/dL (2.5-4.5) 11/07/18 05:05 Albumin/Globulin Ratio 0.7 Ratio (1.1-2.1) L 11/07/18 05:05 Specimen Type Random urine 11/06/18 19:00 Urine Color Yellow (YELLOW) 11/06/18 19:00 Urine Appearance Clear (CLEAR) 11/06/18 19:00 Urine pH 8.0 (5.0 - 8.0) 11/06/18 19:00 Ur Specific [place] 1.015 (1.000-1.030) 11/06/18 19:00 Urine Protein Negative (NEGATIVE) 11/06/18 19:00 Urine Glucose (UA) Negative (NEGATIVE) 11/06/18 19:00 Urine Ketones 1+ (NEGATIVE) 11/06/18 19:00 Urine Occult Blood 1+ (NEGATIVE) 11/06/18 19:00 Urine Nitrite Negative (NEGATIVE) 11/06/18 19:00 Urine Bilirubin Negative (NEGATIVE) 11/06/18 19:00 Urine Urobilinogen Normal (NORMAL) 11/06/18 19:00 Ur Leukocyte Esterase Negative (NEGATIVE) 11/06/18 19:00 Urine RBC 0-2 /HPF (NONE SEEN) 11/06/18 19:00 Urine WBC None seen /HPF (NONE SEEN) 11/06/18 19:00 Ur Squamous Epith Cells Rare /HPF (NEGATIVE) 11/06/18 19:00 Urine Bacteria Negative /HPF (NEGATIVE) 11/06/18 19:00 Ur Culture Indicated? No/not indicated 11/06/18 19:00 Digoxin 1.09 ng/mL (0.9-2) 11/03/18 11:53 - Plan (1) Abdominal pain Status: Acute Plan: IMPROVED, WILL CONTINUE TO ADVANCE DIET TOLERATED. MONITOR BM'S, AM LABS. ENCOURAGE PHYSICAL THERAPY AND ORAL HYDRATION (2) Fecal impaction Status: Acute (3) CHF (congestive heart failure) Status: Acute Qualifiers: Qualified Code(s): I50.9 - Heart failure, unspecified (4) Esophageal cancer Status: Chronic (5) COPD (chronic obstructive pulmonary disease) Status: Chronic (6) History of deep venous thrombosis or pulmonary embolus Status: Chronic (7) Atrial fibrillation Status: Chronic (8) Nausea & vomiting Status: Acute
--- NOTE | 2018-11-07 14:55 | PCM.PROG ---
Progress Note - Progress Note for Day of Date of Exam: 11/06/18 - Subjective Subjective: 73 WM ER ADMISSION ON 11/03 WITH INTRACTABLE ABDOMINAL PAIN AND CONSTIPATION WITH CO NAUSEA WITH IMPROVED VOMTING. PT DENIES ABDOMINAL PAIN BUT CO BACK PAIN. NURSING STAFF REPORTS PT HAS HAD MULTPLE WATERY BM'S AFTER GOLYTELY. PT DENIES ANY VOMITING AND HAS RESUMED PO PAIN CONTROL, PT CONTINUES TO CO LOWER BACK PAIN AND GENERALIZED WEAKNESS. PT NA 132 AND WBC SLIGHTLY INCREASED TODAY 12.2, AFEBRILE. STARTED ON ZOSYN AND CT ABD/PELVIS WITH CONTRAST Q AM, SOFT DIET UNTIL MID NIGHT TOLERATED. - Past Medical Family Social History Past Med/Fam/Surg Hx: No changes since H&P Allergies: Allergies No Known Drug Allergies Allergy (Verified 11/03/18 10:42) - Review of Systems ROS: No change since H&P - Vital Signs and I&O's Vital Signs: Temperature 97.6 F Pulse Rate [Right Brachial] 93 Pulse Rate 82 Respiratory Rate 18 Blood Pressure [Right Arm] 145/80 Blood Pressure [Left Arm] 136/63 Blood Pressure 111/55 O2 Sat by Pulse Oximetry 95 Intake and Output: Intake & Output 11/05/18 11/06/18 11/07/18 11/08/18 11:59 11:59 11:59 11:59 Intake Total 5570 / 5570 1999 3642 / 2 Balance 5570 / 5570 1999 / 3641 - Physical Exam Oriented: Normal Eyes: Normal Ear: Normal Nose: Normal Throat: Normal Respiratory: Diminished Cardiovascular: Normal : Normal Auscultation: Bowel Sounds: Decreased Tenderness: Epigastric, Mild Skin: Decreased Turgur Musculoskeletal: Right, Left, Leg, Back:Lumbar, Instability Psychiatric: Normal Mood Description: Calm Speech Pattern: Clear, Appropriate - Laboratory and Diagnostics Result Diagrams: 11/07/18 05:05 11/07/18 05:05 Labs: Laboratory WBC 7.5 X10^3/uL (3.6-10.0) 11/07/18 05:05 RBC 3.41 X10^6/uL (4.7-6.0) L 11/07/18 05:05 Hgb 10.8 g/dL (13.5-18.0) L 11/07/18 05:05 Hct 31.9 % (42.0-54.0) L 11/07/18 05:05 MCV 93.6 fL (80.0-100.0) 11/07/18 05:05 MCH 31.8 pg (27.0-34.0) 11/07/18 05:05 MCHC 34.0 g/dL (33.0-35.0) 11/07/18 05:05 RDW 14.4 % (11.6-16.5) 11/07/18 05:05 Plt Count 147 X10^3/uL (150.0-450.0) L 11/07/18 05:05 MPV 7.6 fL (7.4-11.0) 11/07/18 05:05 Neut % (Auto) 64.8 % (42.0-75.0) 11/07/18 05:05 Lymph % (Auto) 22.6 % (21.0-51.0) 11/07/18 05:05 [place] % (Auto) 9.6 % (0.0-13.0) 11/07/18 05:05 Eos % (Auto) 2.3 % (0.9-2.9) 11/07/18 05:05 Baso % (Auto) 0.7 % (0.2-1.0) 11/07/18 05:05 Neut # (Auto) 4.8 x10^3/uL (2.2-4.8) 11/07/18 05:05 Lymph # (Auto) 1.7 X10^3/uL (1.3-2.9) 11/07/18 05:05 [place] # (Auto) 0.7 x10^3/uL (0.3-0.8) 11/07/18 05:05 Eos # (Auto) 0.2 x10^3/uL (0.0-0.2) 11/07/18 05:05 Baso # (Auto) 0.1 X10^3/uL (0.0-0.1) 11/07/18 05:05 Absolute Nucleated RBC 0.0 /100WBC 11/07/18 05:05 INR Target Range - 11/05/18 04:37 INR 3.42 (0.8-1.3) H 11/05/18 04:37 Sodium 134 mmol/L (136-145) L 11/07/18 05:05 Corrected Sodium TNP 11/07/18 05:05 Potassium 4.6 mmol/L (3.5-5.1) 11/07/18 05:05 Chloride 101 mmol/L (98-107) 11/07/18 05:05 Carbon Dioxide 27.6 mmol/L (21-32) 11/07/18 05:05 BUN 4 mg/dL (7-18) L 11/07/18 05:05 Creatinine 0.55 mg/dL (0.70-1.30) L 11/07/18 05:05 Est GFR (MDRD) Af Amer > 60 (>60) 11/07/18 05:05 Est GFR (MDRD) Non-Af > 60 (>60) 11/07/18 05:05 Glucose 93 mg/dL (65-99) 11/07/18 05:05 Calcium 7.8 mg/dL (8.5-10.1) L 11/07/18 05:05 Corrected Calcium 9.2 mg/dL (8.5-10.1) 11/07/18 05:05 Magnesium 1.9 mg/dL (1.7-2.9) 11/06/18 05:30 Total Bilirubin 0.40 mg/dL (0.2-1.0) 11/07/18 05:05 AST 15 Units/L (15-37) 11/07/18 05:05 ALT 15 Units/L (12-78) 11/07/18 05:05 Alkaline Phosphatase 63 Units/L (46-116) 11/07/18 05:05 Total Protein 5.4 g/dL (6.4-8.2) L 11/07/18 05:05 Albumin 2.3 g/dL (3.4-5.0) L 11/07/18 05:05 Globulin 3.1 g/dL (2.5-4.5) 11/07/18 05:05 Albumin/Globulin Ratio 0.7 Ratio (1.1-2.1) L 11/07/18 05:05 Specimen Type Random urine 11/06/18 19:00 Urine Color Yellow (YELLOW) 11/06/18 19:00 Urine Appearance Clear (CLEAR) 11/06/18 19:00 Urine pH 8.0 (5.0 - 8.0) 11/06/18 19:00 Ur Specific [place] 1.015 (1.000-1.030) 11/06/18 19:00 Urine Protein Negative (NEGATIVE) 11/06/18 19:00 Urine Glucose (UA) Negative (NEGATIVE) 11/06/18 19:00 Urine Ketones 1+ (NEGATIVE) 11/06/18 19:00 Urine Occult Blood 1+ (NEGATIVE) 11/06/18 19:00 Urine Nitrite Negative (NEGATIVE) 11/06/18 19:00 Urine Bilirubin Negative (NEGATIVE) 11/06/18 19:00 Urine Urobilinogen Normal (NORMAL) 11/06/18 19:00 Ur Leukocyte Esterase Negative (NEGATIVE) 11/06/18 19:00 Urine RBC 0-2 /HPF (NONE SEEN) 11/06/18 19:00 Urine WBC None seen /HPF (NONE SEEN) 11/06/18 19:00 Ur Squamous Epith Cells Rare /HPF (NEGATIVE) 11/06/18 19:00 Urine Bacteria Negative /HPF (NEGATIVE) 11/06/18 19:00 Ur Culture Indicated? No/not indicated 11/06/18 19:00 Digoxin 1.09 ng/mL (0.9-2) 11/03/18 11:53 - Plan (1) Abdominal pain Status: Acute Plan: IMPROVED, WILL CONTINUE TO ADVANCE DIET TOLERATED. MONITOR BM'S, AM LABS, ZOSYN AND CT ABD PELVIS Q AM. ENCOURAGE PHYSICAL THERAPY AND ORAL HYDRATION (2) Fecal impaction Status: Acute (3) CHF (congestive heart failure) Status: Acute Qualifiers: Qualified Code(s): I50.9 - Heart failure, unspecified (4) Esophageal cancer Status: Chronic (5) COPD (chronic obstructive pulmonary disease) Status: Chronic (6) History of deep venous thrombosis or pulmonary embolus Status: Chronic (7) Atrial fibrillation Status: Chronic (8) Nausea & vomiting Status: Acute
--- NOTE | 2018-11-07 14:57 | PCM.PROG ---
Progress Note - Progress Note for Day of Date of Exam: 11/07/18 - Subjective Subjective: 73 WM ER ADMISSION ON 11/03 WITH INTRACTABLE ABDOMINAL PAIN AND CONSTIPATION WITH CO NAUSEA WITH IMPROVED VOMTING. PT DENIES ABDOMINAL PAIN BUT CO BACK PAIN. PT HAS MILD SOB NOTICED ON EXAM THIS AM, HE IS CURRENTLY NPO FOR CT ABD PELVIS. WILL HAD LASIX 40IV X2 DOSE AND MONITOR I & OS. - Past Medical Family Social History Past Med/Fam/Surg Hx: No changes since H&P Allergies: Allergies No Known Drug Allergies Allergy (Verified 11/03/18 10:42) - Review of Systems ROS: No change since H&P - Vital Signs and I&O's Vital Signs: Temperature 97.6 F Pulse Rate [Right Brachial] 93 Pulse Rate 82 Respiratory Rate 18 Blood Pressure [Right Arm] 145/80 Blood Pressure [Left Arm] 136/63 Blood Pressure 111/55 O2 Sat by Pulse Oximetry 95 Intake and Output: Intake & Output 11/05/18 11/06/18 11/07/18 11/08/18 11:59 11:59 11:59 11:59 Intake Total 5570 / 5570 1999 / 3642 Balance 5570 / 5570 1999 / 364 - Physical Exam Oriented: Normal Eyes: Normal Ear: Normal Nose: Normal Throat: Normal Respiratory: Diminished Cardiovascular: Normal : Normal Auscultation: Bowel Sounds: Decreased Tenderness: Epigastric, Mild Skin: Decreased Turgur Musculoskeletal: Right, Left, Leg, Back:Lumbar, Instability Psychiatric: Normal Mood Description: Calm Speech Pattern: Clear, Appropriate - Laboratory and Diagnostics Result Diagrams: 11/07/18 05:05 11/07/18 05:05 Labs: Laboratory WBC 7.5 X10^3/uL (3.6-10.0) 11/07/18 05:05 RBC 3.41 X10^6/uL (4.7-6.0) L 11/07/18 05:05 Hgb 10.8 g/dL (13.5-18.0) L 11/07/18 05:05 Hct 31.9 % (42.0-54.0) L 11/07/18 05:05 MCV 93.6 fL (80.0-100.0) 11/07/18 05:05 MCH 31.8 pg (27.0-34.0) 11/07/18 05:05 MCHC 34.0 g/dL (33.0-35.0) 11/07/18 05:05 RDW 14.4 % (11.6-16.5) 11/07/18 05:05 Plt Count 147 X10^3/uL (150.0-450.0) L 11/07/18 05:05 MPV 7.6 fL (7.4-11.0) 11/07/18 05:05 Neut % (Auto) 64.8 % (42.0-75.0) 11/07/18 05:05 Lymph % (Auto) 22.6 % (21.0-51.0) 11/07/18 05:05 [place] % (Auto) 9.6 % (0.0-13.0) 11/07/18 05:05 Eos % (Auto) 2.3 % (0.9-2.9) 11/07/18 05:05 Baso % (Auto) 0.7 % (0.2-1.0) 11/07/18 05:05 Neut # (Auto) 4.8 x10^3/uL (2.2-4.8) 11/07/18 05:05 Lymph # (Auto) 1.7 X10^3/uL (1.3-2.9) 11/07/18 05:05 [place] # (Auto) 0.7 x10^3/uL (0.3-0.8) 11/07/18 05:05 Eos # (Auto) 0.2 x10^3/uL (0.0-0.2) 11/07/18 05:05 Baso # (Auto) 0.1 X10^3/uL (0.0-0.1) 11/07/18 05:05 Absolute Nucleated RBC 0.0 /100WBC 11/07/18 05:05 INR Target Range - 11/05/18 04:37 INR 3.42 (0.8-1.3) H 11/05/18 04:37 Sodium 134 mmol/L (136-145) L 11/07/18 05:05 Corrected Sodium TNP 11/07/18 05:05 Potassium 4.6 mmol/L (3.5-5.1) 11/07/18 05:05 Chloride 101 mmol/L (98-107) 11/07/18 05:05 Carbon Dioxide 27.6 mmol/L (21-32) 11/07/18 05:05 BUN 4 mg/dL (7-18) L 11/07/18 05:05 Creatinine 0.55 mg/dL (0.70-1.30) L 11/07/18 05:05 Est GFR (MDRD) Af Amer > 60 (>60) 11/07/18 05:05 Est GFR (MDRD) Non-Af > 60 (>60) 11/07/18 05:05 Glucose 93 mg/dL (65-99) 11/07/18 05:05 Calcium 7.8 mg/dL (8.5-10.1) L 11/07/18 05:05 Corrected Calcium 9.2 mg/dL (8.5-10.1) 11/07/18 05:05 Magnesium 1.9 mg/dL (1.7-2.9) 11/06/18 05:30 Total Bilirubin 0.40 mg/dL (0.2-1.0) 11/07/18 05:05 AST 15 Units/L (15-37) 11/07/18 05:05 ALT 15 Units/L (12-78) 11/07/18 05:05 Alkaline Phosphatase 63 Units/L (46-116) 11/07/18 05:05 Total Protein 5.4 g/dL (6.4-8.2) L 11/07/18 05:05 Albumin 2.3 g/dL (3.4-5.0) L 11/07/18 05:05 Globulin 3.1 g/dL (2.5-4.5) 11/07/18 05:05 Albumin/Globulin Ratio 0.7 Ratio (1.1-2.1) L 11/07/18 05:05 Specimen Type Random urine 11/06/18 19:00 Urine Color Yellow (YELLOW) 11/06/18 19:00 Urine Appearance Clear (CLEAR) 11/06/18 19:00 Urine pH 8.0 (5.0 - 8.0) 11/06/18 19:00 Ur Specific [place] 1.015 (1.000-1.030) 11/06/18 19:00 Urine Protein Negative (NEGATIVE) 11/06/18 19:00 Urine Glucose (UA) Negative (NEGATIVE) 11/06/18 19:00 Urine Ketones 1+ (NEGATIVE) 11/06/18 19:00 Urine Occult Blood 1+ (NEGATIVE) 11/06/18 19:00 Urine Nitrite Negative (NEGATIVE) 11/06/18 19:00 Urine Bilirubin Negative (NEGATIVE) 11/06/18 19:00 Urine Urobilinogen Normal (NORMAL) 11/06/18 19:00 Ur Leukocyte Esterase Negative (NEGATIVE) 11/06/18 19:00 Urine RBC 0-2 /HPF (NONE SEEN) 11/06/18 19:00 Urine WBC None seen /HPF (NONE SEEN) 11/06/18 19:00 Ur Squamous Epith Cells Rare /HPF (NEGATIVE) 11/06/18 19:00 Urine Bacteria Negative /HPF (NEGATIVE) 11/06/18 19:00 Ur Culture Indicated? No/not indicated 11/06/18 19:00 Digoxin 1.09 ng/mL (0.9-2) 11/03/18 11:53 - Plan (1) Abdominal pain Status: Acute Plan: IMPROVED, WILL CONTINUE TO ADVANCE DIET TOLERATED. MONITOR BM'S, AM LABS, ZOSYN AND CT ABD PELVIS. ENCOURAGE PHYSICAL THERAPY AND ORAL HYDRATION (2) Fecal impaction Status: Acute (3) CHF (congestive heart failure) Status: Acute Qualifiers: Qualified Code(s): I50.9 - Heart failure, unspecified Plan: STRICT I & OS, IV LASIX (4) Esophageal cancer Status: Chronic (5) COPD (chronic obstructive pulmonary disease) Status: Chronic (6) History of deep venous thrombosis or pulmonary embolus Status: Chronic (7) Atrial fibrillation Status: Chronic (8) Nausea & vomiting Status: Acute
[2018-11-07 15:05] LABS: ABG ALLEN TEST POS; ABG BASE EXCESS 1.5 mmol/L (-2.0-2.0); ABG HCO3 25.9 mmol/L (22-26)
[2018-11-07] MEDS: LASIX IVP SCH ×3 (17:23→22:20)
[2018-11-07] MEDS: COLACE CAP 100 MG PO SCH (21:17)
[2018-11-07] MEDS: ZANTAC PO SCH (21:26)
[2018-11-08] MEDS: ZOSYN VIAL 3.375 GRAMS 3.375 G in NS 100 ML IV + SPIKE MINIBAG* 100 ML IV SCH ×3 (05:26→22:09)
[2018-11-08] MEDS: NS 1000 ML 1,000 ML IV SCH ×3 (05:26→22:15)
--- NOTE | 2018-11-08 07:06 | CT ---
HISTORY: Pulmonary nodule, history of malignancy Study: CT chest without contrast Comparison: Abdomen CT 11/07/2018, 02/21/2018 Technique: Multiple axial images of the chest were obtained from the thoracic inlet to the upper abdomen without IV contrast. Dose reduction techniques including Automated Exposure Control (AEC) and adjustment of mA and kV were utilized. Findings: Please note evaluation is limited without IV contrast. There are postsurgical changes in the thorax related to esophagectomy with gastric pull-through. 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 There is compressive atelectasis in the bilateral lower lobes. There is a moderate-sized left pleural effusion and trace right effusion. There are mild ground-glass opacities in the lingula and right middle lobe that are nonspecific. There is a subpleural 1.3 cm pulmonary nodule in the left upper lobe on axial image 25. There is a chronic compression fracture of the superior endplate of L1. There is an IVC filter in place. There is a small density partially seen in the gallbladder suggestive of a gallstone. IMPRESSION: 1. 1.3 cm subpleural pulmonary nodule in the anterior left upper lobe. Given the history of esophageal cancer, cannot exclude metastatic disease. Correlation with any previous chest CT imaging would be beneficial. Otherwise, consider PET scan for further evaluation. 2. Postsurgical changes from previous esophagectomy and gastric pull-through with distention of the jeanie esophagus. 3. Bilateral pleural effusions, greater on the left. 4. Mild ground-glass/tree-in-bud opacities in the lingula and right middle lobe that may reflect bronchiolitis. 5. Chronic superior endplate fracture of L1. Reported By:
[2018-11-08 07:13] LABS: BASOPHILS # (AUTO) 0.1 X10^3/uL (0.0-0.1); BASOPHILS % (AUTO) 0.7 % (0.2-1.0); EOSINOPHILS # (AUTO) 0.2 x10^3/uL (0.0-0.2); EOSINOPHILS % (AUTO) 2.3 % (0.9-2.9); HEMATOCRIT 33.1 % (42.0-54.0); HEMOGLOBIN 11.1 g/dL (13.5-18.0); LYMPHOCYTES # (AUTO) 2.3 X10^3/uL (1.3-2.9); LYMPHOCYTES % (AUTO) 23.3 % (21.0-51.0); MEAN CORPUSCULAR HEMOGLOBIN 31.5 pg (27.0-34.0); MEAN CORPUSCULAR HGB CONC 33.6 g/dL (33.0-35.0); MEAN CORPUSCULAR VOLUME 93.7 fL (80.0-100.0); MEAN PLATELET VOLUME 7.8 fL (7.4-11.0); MONOCYTES # (AUTO) 1.1 x10^3/uL (0.3-0.8); MONOCYTES % (AUTO) 11.2 % (0.0-13.0); NEUTROPHILS # (AUTO) 6.3 x10^3/uL (2.2-4.8); NEUTROPHILS % (AUTO) 62.5 % (42.0-75.0); PLATELET COUNT 171 X10^3/uL (150.0-450.0); RED BLOOD COUNT 3.54 X10^6/uL (4.7-6.0); RED CELL DISTRIBUTION WIDTH 14.2 % (11.6-16.5); WHITE BLOOD COUNT 10.1 X10^3/uL (3.6-10.0)
[2018-11-08 07:28] LABS: ALANINE AMINOTRANSFERASE 13 Units/L (12-78); ALBUMIN 2.4 g/dL (3.4-5.0); ALKALINE PHOSPHATASE 72 Units/L (46-116); ASPARTATE AMINO TRANSFERASE 18 Units/L (15-37); BLOOD UREA NITROGEN 5 mg/dL (7-18); CALCIUM 7.9 mg/dL (8.5-10.1); CARBON DIOXIDE 27.9 mmol/L (21-32); CHLORIDE 95 mmol/L (98-107); COR CA(FOR HYPOALB) 9.2 mg/dL (8.5-10.1); CREATININE 0.64 mg/dL (0.70-1.30); SODIUM 131 mmol/L (136-145); TOTAL PROTEIN 5.7 g/dL (6.4-8.2); eGFR NON BLACK RACES > 60 (>60)
[2018-11-08] MEDS ORDERED: LASIX IVP ONE (08:19)
[2018-11-08] MEDS: LANOXIN PO SCH (09:16)
[2018-11-08] MEDS: K-DUR TAB 20 MEQ PO PRN (09:18)
[2018-11-08] MEDS: PROTONIX TAB 40 MG PO SCH (09:18)
[2018-11-08] MEDS: MILK OF MAGNESIA PO SCH ×2 (09:19→22:09)
[2018-11-08] MEDS: PROPAFENONE 325 MG PO SCH ×2 (09:19→22:09)
[2018-11-08] MEDS: MEGACE PO SCH ×2 (09:22→22:09)
[2018-11-08] MEDS: LEVAQUIN PREMIX IV 750 MG 750 MG/150 ML BAG IV SCH (11:26)
[2018-11-08] MEDS ORDERED: LASIX IVP NR (12:00)
[2018-11-08] MEDS: DUONEB 0.5 MG/3 MG NEB SCH ×3 (12:09→20:30)
[2018-11-08] MEDS: MAGNESIUM SULFATE 1 GRAM/100 mL PREMIX 1 GM/100 ML BAG IV PRN ×2 (13:17→14:30)
[2018-11-08] MEDS: PERCOCET TAB 5/325 MG PO PRN (16:20)
[2018-11-08] MEDS: COLACE CAP 100 MG PO SCH (22:09)
[2018-11-08] MEDS: ZANTAC PO SCH (22:09)
[2018-11-09] MEDS: PERCOCET TAB 5/325 MG PO PRN (03:07)
[2018-11-09] MEDS: ZOSYN VIAL 3.375 GRAMS 3.375 G in NS 100 ML IV + SPIKE MINIBAG* 100 ML IV SCH ×3 (05:33→21:03)
[2018-11-09] MEDS: NS 1000 ML 1,000 ML IV SCH ×3 (05:33→20:29)
[2018-11-09 06:12] LABS: BASOPHILS % (AUTO) 0.4 % (0.2-1.0); EOSINOPHILS # (AUTO) 0.2 x10^3/uL (0.0-0.2); EOSINOPHILS % (AUTO) 2.2 % (0.9-2.9); HEMATOCRIT 32.3 % (42.0-54.0); HEMOGLOBIN 10.8 g/dL (13.5-18.0); LYMPHOCYTES # (AUTO) 2.3 X10^3/uL (1.3-2.9); LYMPHOCYTES % (AUTO) 25.8 % (21.0-51.0); MEAN CORPUSCULAR HEMOGLOBIN 31.5 pg (27.0-34.0); MEAN CORPUSCULAR HGB CONC 33.6 g/dL (33.0-35.0); MEAN CORPUSCULAR VOLUME 93.9 fL (80.0-100.0); MEAN PLATELET VOLUME 7.9 fL (7.4-11.0); MONOCYTES # (AUTO) 1.1 x10^3/uL (0.3-0.8); MONOCYTES % (AUTO) 12.1 % (0.0-13.0); NEUTROPHILS # (AUTO) 5.3 x10^3/uL (2.2-4.8); NEUTROPHILS % (AUTO) 59.5 % (42.0-75.0); PLATELET COUNT 174 X10^3/uL (150.0-450.0); RED BLOOD COUNT 3.44 X10^6/uL (4.7-6.0); RED CELL DISTRIBUTION WIDTH 14.3 % (11.6-16.5); WHITE BLOOD COUNT 8.9 X10^3/uL (3.6-10.0)
[2018-11-09 06:56] LABS: ALANINE AMINOTRANSFERASE 12 Units/L (12-78); ALBUMIN 2.3 g/dL (3.4-5.0); ALKALINE PHOSPHATASE 65 Units/L (46-116); ASPARTATE AMINO TRANSFERASE 13 Units/L (15-37); BLOOD UREA NITROGEN 5 mg/dL (7-18); CALCIUM 8.1 mg/dL (8.5-10.1); CARBON DIOXIDE 27.8 mmol/L (21-32); CHLORIDE 95 mmol/L (98-107); COR CA(FOR HYPOALB) 9.5 mg/dL (8.5-10.1); CREATININE 0.66 mg/dL (0.70-1.30); SODIUM 129 mmol/L (136-145); TOTAL PROTEIN 5.7 g/dL (6.4-8.2); eGFR NON BLACK RACES > 60 (>60)
[2018-11-09] MEDS: DUONEB 0.5 MG/3 MG NEB SCH ×5 (07:44→20:41)
[2018-11-09] MEDS: MEGACE PO SCH ×2 (08:56→20:22)
[2018-11-09] MEDS: PROPAFENONE 325 MG PO SCH ×2 (08:56→20:29)
[2018-11-09] MEDS: PROTONIX TAB 40 MG PO SCH (08:56)
[2018-11-09] MEDS: LEVAQUIN PREMIX IV 750 MG 750 MG/150 ML BAG IV SCH (08:56)
[2018-11-09] MEDS: LANOXIN PO SCH (11:33)
[2018-11-09] MEDS: MILK OF MAGNESIA PO SCH ×2 (11:34→20:23)
[2018-11-09] MEDS: ZANTAC PO SCH (20:22)
[2018-11-09] MEDS: COLACE CAP 100 MG PO SCH (20:23)
[2018-11-10] MEDS: PERCOCET TAB 5/325 MG PO PRN (04:51)
[2018-11-10 05:17] LABS: BASOPHILS # (AUTO) 0.1 X10^3/uL (0.0-0.1); BASOPHILS % (AUTO) 0.9 % (0.2-1.0); EOSINOPHILS # (AUTO) 0.2 x10^3/uL (0.0-0.2); EOSINOPHILS % (AUTO) 2.6 % (0.9-2.9); HEMATOCRIT 34.3 % (42.0-54.0); HEMOGLOBIN 11.4 g/dL (13.5-18.0); LYMPHOCYTES # (AUTO) 1.8 X10^3/uL (1.3-2.9); LYMPHOCYTES % (AUTO) 24.1 % (21.0-51.0); MEAN CORPUSCULAR HEMOGLOBIN 31.1 pg (27.0-34.0); MEAN CORPUSCULAR HGB CONC 33.1 g/dL (33.0-35.0); MEAN PLATELET VOLUME 7.6 fL (7.4-11.0); MONOCYTES # (AUTO) 0.7 x10^3/uL (0.3-0.8); NEUTROPHILS # (AUTO) 4.7 x10^3/uL (2.2-4.8); NEUTROPHILS % (AUTO) 62.4 % (42.0-75.0); PLATELET COUNT 176 X10^3/uL (150.0-450.0); RED BLOOD COUNT 3.65 X10^6/uL (4.7-6.0); RED CELL DISTRIBUTION WIDTH 14.4 % (11.6-16.5); WHITE BLOOD COUNT 7.5 X10^3/uL (3.6-10.0)
[2018-11-10 05:26] LABS: ALANINE AMINOTRANSFERASE 14 Units/L (12-78); ALBUMIN 2.5 g/dL (3.4-5.0); ALKALINE PHOSPHATASE 65 Units/L (46-116); ASPARTATE AMINO TRANSFERASE 13 Units/L (15-37); BLOOD UREA NITROGEN 3 mg/dL (7-18); CALCIUM 8.3 mg/dL (8.5-10.1); CARBON DIOXIDE 25.8 mmol/L (21-32); CHLORIDE 96 mmol/L (98-107); COR CA(FOR HYPOALB) 9.5 mg/dL (8.5-10.1); CREATININE 0.71 mg/dL (0.70-1.30); SODIUM 129 mmol/L (136-145); eGFR NON BLACK RACES > 60 (>60)
[2018-11-10] MEDS: ZOSYN VIAL 3.375 GRAMS 3.375 G in NS 100 ML IV + SPIKE MINIBAG* 100 ML IV SCH ×3 (05:41→21:31)
[2018-11-10] MEDS: NS 1000 ML 1,000 ML IV SCH ×3 (05:41→19:10)
[2018-11-10] MEDS: MORPHINE SULFATE INJ 2 MG INJ IVP PRN ×2 (08:55→16:11)
[2018-11-10] MEDS: LEVAQUIN PREMIX IV 750 MG 750 MG/150 ML BAG IV SCH (08:56)
[2018-11-10] MEDS: PROTONIX TAB 40 MG PO SCH (08:56)
[2018-11-10] MEDS: LANOXIN PO SCH (08:56)
[2018-11-10] MEDS: MEGACE PO SCH ×2 (08:57→21:30)
[2018-11-10] MEDS: MILK OF MAGNESIA PO SCH ×2 (08:57→21:31)
[2018-11-10] MEDS: PROPAFENONE 325 MG PO SCH ×2 (09:04→21:32)
[2018-11-10] MEDS: DUONEB 0.5 MG/3 MG NEB SCH ×4 (09:45→20:00)
--- NOTE | 2018-11-10 11:43 | RAD ---
History: Abdominal pain and nausea and vomiting. Study: KUB Comparison: November 04 Findings: The bowel gas pattern is unremarkable. There is some CT barium in the splenic flexure. There is no abnormal bowel gaseous distention. There is a filter in the IVC. There are degenerative changes in the spine. Impression: No acute disease in the abdomen is demonstrated Reported By:
[2018-11-10] MEDS ORDERED: COUMADIN TAB 2.5 MG PO SCH (21:00)
--- NOTE | 2018-11-10 21:21 | PCM.PROG ---
Progress Note - Progress Note for Day of Date of Exam: 11/10/18 - Subjective Subjective: IS A 73 YEAR OLD PATIENT OF OURS WHO WAS ADMITTED ON 11/03/18 FOR ABDOMINAL PAIN AND FECAL IMPACTION. HE HAS A HISTORY OF ESOPHAGEAL CANCER, FOR WHICH HE IS ON OPIOIDS FOR PAIN CONTROL. AN ABDOMEN/PELVIS CT WAS OBTAINED EARLIER IN THE WEEK AND REVEALED A 1.3CM SPICULATED LEFT UPPER LOBE NODULE WHICH IS CONCERNING FOR MALIGNANCY. PET SCAN RECOMMENDED. TODAY, HE IS ALERT AND ORIENTED, LYING IN BED ON MORNING ROUNDS. HE CONTINUES WITH NAUSEA AND MILD ABDOMINAL PAIN. HE ALSO CONTINUES WITH A NON-PRODUCTIVE COUGH AND LOWER BACK PAIN. ON EXAMINATION, HEART IS REGULAR IN RATE AND RHYTHM. BILATERAL LUNGS ARE NOTED WITH DIMINISHED LUNG SOUNDS THROUGHOUT. ABDOMEN IS FLAT, SOFT, AND N OTED WITH MILD, DIFFUSE TENDERNESS. VITALS THIS MORNING WERE: 98.1-91-20-97%-129/76. LABS WERE OBTAINED. ABNORMAL LAB VALUES INCLUDE THE FOLLOWING: RBC 3.65, HGB 11.4, HCT 34.3, SODIUM 129, CHLORIDE 96, BUN 3, CALCIUM 8.3, AST 13, TOTAL PROTEIN 6.0, ALBUMIN 2.5, INR 1.47. WE OBTAINED A KUB THIS MONRING. IT REVEALED NO ACUTE DISEASE IN THE ABDOMEN DEMONSTRATED. HE IS CURRENTLY RECEIVING IV HYDRATION, IV ANTIBIOTICS, AND PPI THERAPY. WE WILL CONTINUE WITH CURRENT PLAN OF CARE TODAY. OTHERWISE, WE WILL FOLLOW UP WITH AM LABS AND CONTINUE TO MONITOR. - Past Medical Family Social History Past Med/Fam/Surg Hx: No changes since H&P Allergies: Allergies clonazepam [From Klonopin] Allergy (Verified 11/10/18 16:16) - Review of Systems ROS: No change since H&P - Vital Signs and I&O's Vital Signs: Temperature 97.7 F Pulse Rate [Left Brachial] 94 Pulse Rate [Right Brachial] 85 Pulse Rate 90 Respiratory Rate 20 Blood Pressure [Right Arm] 164/83 Blood Pressure [Left Arm] 126/71 Blood Pressure 111/55 O2 Sat by Pulse Oximetry 98 Intake and Output: Intake & Output 11/08/18 11/09/18 11/10/18 11/11/18 11:59 11:59 11:59 11:59 Intake Total 780 / 780 1180 / 1180 1240 / 1240 440 / 440 Balance 780 / 780 1180 / 1180 1240 / 1240 440 / 440 - Physical Exam Oriented: Normal Eyes: Normal Ear: Normal Nose: Normal Throat: Normal Respiratory: Diminished Cardiovascular: Normal : Normal Auscultation: Bowel Sounds: Decreased Tenderness: Diffuse, Mild Skin: Decreased Turgur Musculoskeletal: Right, Left, Leg, Back:Lumbar, Instability Psychiatric: Normal Mood Description: Calm Speech Pattern: Clear, Appropriate - Laboratory and Diagnostics Result Diagrams: 11/10/18 04:48 11/10/18 04:48 Labs: 11/08/18 11:20 Sputum - Expectorated Sputum Sputum Culture - Final 11/08/18 11:20 Sputum - Expectorated Sputum - Final 11/07/18 15:24 Sputum - Expectorated Sputum Sputum Culture - Final Klebsiella Oxytoca 11/07/18 15:24 Sputum - Expectorated Sputum - Final Laboratory WBC 7.5 X10^3/uL (3.6-10.0) 11/10/18 04:48 RBC 3.65 X10^6/uL (4.7-6.0) L 11/10/18 04:48 Hgb 11.4 g/dL (13.5-18.0) L 11/10/18 04:48 Hct 34.3 % (42.0-54.0) L 11/10/18 04:48 MCV 94.0 fL (80.0-100.0) 11/10/18 04:48 MCH 31.1 pg (27.0-34.0) 11/10/18 04:48 MCHC 33.1 g/dL (33.0-35.0) 11/10/18 04:48 RDW 14.4 % (11.6-16.5) 11/10/18 04:48 Plt Count 176 X10^3/uL (150.0-450.0) 11/10/18 04:48 MPV 7.6 fL (7.4-11.0) 11/10/18 04:48 Neut % (Auto) 62.4 % (42.0-75.0) 11/10/18 04:48 Lymph % (Auto) 24.1 % (21.0-51.0) 11/10/18 04:48 [place] % (Auto) 10.0 % (0.0-13.0) 11/10/18 04:48 Eos % (Auto) 2.6 % (0.9-2.9) 11/10/18 04:48 Baso % (Auto) 0.9 % (0.2-1.0) 11/10/18 04:48 Neut # (Auto) 4.7 x10^3/uL (2.2-4.8) 11/10/18 04:48 Lymph # (Auto) 1.8 X10^3/uL (1.3-2.9) 11/10/18 04:48 [place] # (Auto) 0.7 x10^3/uL (0.3-0.8) 11/10/18 04:48 Eos # (Auto) 0.2 x10^3/uL (0.0-0.2) 11/10/18 04:48 Baso # (Auto) 0.1 X10^3/uL (0.0-0.1) 11/10/18 04:48 Absolute Nucleated RBC 0.0 /100WBC 11/10/18 04:48 INR Target Range - 11/10/18 04:48 INR 1.47 (0.8-1.3) H 11/10/18 04:48 Sample Site Right radial 11/07/18 14:50 ABG pH 7.430 (7.35-7.45) 11/07/18 14:50 ABG pCO2 39.0 mmHg (35.0-45.0) 11/07/18 14:50 ABG pO2 57.0 mmHg (80.0-100.0) L 11/07/18 14:50 ABG HCO3 25.9 mmol/L (22-26) 11/07/18 14:50 ABG O2 Saturation 90.0 % (90-100) 11/07/18 14:50 ABG Base Excess 1.5 mmol/L (-2.0-2.0) 11/07/18 14:50 Eleazar Test Pos 11/07/18 14:50 A-a Gradient 44.0 mmHg 11/07/18 14:50 FiO2 21.0 11/07/18 14:50 Blood Gas Comments Tahira well aw 11/07/18 14:50 Sodium 129 mmol/L (136-145) L 11/10/18 04:48 Corrected Sodium TNP 11/10/18 04:48 Potassium 3.9 mmol/L (3.5-5.1) 11/10/18 04:48 Chloride 96 mmol/L (98-107) L 11/10/18 04:48 Carbon Dioxide 25.8 mmol/L (21-32) 11/10/18 04:48 BUN 3 mg/dL (7-18) L 11/10/18 04:48 Creatinine 0.71 mg/dL (0.70-1.30) 11/10/18 04:48 Est GFR (MDRD) Af Amer > 60 (>60) 11/10/18 04:48 Est GFR (MDRD) Non-Af > 60 (>60) 11/10/18 04:48 Glucose 90 mg/dL (65-99) 11/10/18 04:48 Lactic Acid 0.9 mmol/L (0.4-2.0) 11/07/18 15:03 Calcium 8.3 mg/dL (8.5-10.1) L 11/10/18 04:48 Corrected Calcium 9.5 mg/dL (8.5-10.1) 11/10/18 04:48 Magnesium 1.6 mg/dL (1.7-2.9) L 11/08/18 05:47 Total Bilirubin 0.50 mg/dL (0.2-1.0) 11/10/18 04:48 AST 13 Units/L (15-37) L 11/10/18 04:48 ALT 14 Units/L (12-78) 11/10/18 04:48 Alkaline Phosphatase 65 Units/L (46-116) 11/10/18 04:48 Total Protein 6.0 g/dL (6.4-8.2) L 11/10/18 04:48 Albumin 2.5 g/dL (3.4-5.0) L 11/10/18 04:48 Globulin 3.5 g/dL (2.5-4.5) 11/10/18 04:48 Albumin/Globulin Ratio 0.7 Ratio (1.1-2.1) L 11/10/18 04:48 Specimen Type Random urine 11/06/18 19:00 Urine Color Yellow (YELLOW) 11/06/18 19:00 Urine Appearance Clear (CLEAR) 11/06/18 19:00 Urine pH 8.0 (5.0 - 8.0) 11/06/18 19:00 Ur Specific [place] 1.015 (1.000-1.030) 11/06/18 19:00 Urine Protein Negative (NEGATIVE) 11/06/18 19:00 Urine Glucose (UA) Negative (NEGATIVE) 11/06/18 19:00 Urine Ketones 1+ (NEGATIVE) 11/06/18 19:00 Urine Occult Blood 1+ (NEGATIVE) 11/06/18 19:00 Urine Nitrite Negative (NEGATIVE) 11/06/18 19:00 Urine Bilirubin Negative (NEGATIVE) 11/06/18 19:00 Urine Urobilinogen Normal (NORMAL) 11/06/18 19:00 Ur Leukocyte Esterase Negative (NEGATIVE) 11/06/18 19:00 Urine RBC 0-2 /HPF (NONE SEEN) 11/06/18 19:00 Urine WBC None seen /HPF (NONE SEEN) 11/06/18 19:00 Ur Squamous Epith Cells Rare /HPF (NEGATIVE) 11/06/18 19:00 Urine Bacteria Negative /HPF (NEGATIVE) 11/06/18 19:00 Ur Culture Indicated? No/not indicated 11/06/18 19:00 Digoxin 1.09 ng/mL (0.9-2) 11/03/18 11:53 - Plan (1) Abdominal pain Status: Acute Qualifiers: Abdominal location: generalized Qualified Code(s): R10.84 - Generalized abdominal pain Plan: IMPROVED, WILL CONTINUE TO ADVANCE DIET TOLERATED. MONITOR BM'S, AM LABS, ZOSYN AND. ENCOURAGE PHYSICAL THERAPY AND ORAL HYDRATION (2) Fecal impaction Status: Resolved (3) CHF (congestive heart failure) Status: Acute Qualifiers: Qualified Code(s): I50.9 - Heart failure, unspecified Plan: STRICT I & OS, IV LASIX (4) Esophageal carcinoma Status: Acute (5) COPD (chronic obstructive pulmonary disease) Status: Chronic Qualifiers: COPD type: unspecified COPD Qualified Code(s): J44.9 - Chronic obstructive pulmonary disease, unspecified (6) History of deep venous thrombosis or pulmonary embolus Status: Chronic (7) Atrial fibrillation Status: Chronic Qualifiers: Atrial fibrillation type: chronic Qualified Code(s): I48.2 - Chronic atrial fibrillation (8) Nausea & vomiting Status: Acute Qualifiers: Vomiting type: unspecified Vomiting Intractability: unspecified Qualified Code(s): R11.2 - Nausea with vomiting, unspecified
[2018-11-10] MEDS: ZANTAC PO SCH (21:30)
[2018-11-10] MEDS: COLACE CAP 100 MG PO SCH (21:31)
[2018-11-11] MEDS: NS 1000 ML 1,000 ML IV SCH ×2 (00:47→05:32)
[2018-11-11 05:16] LABS: BASOPHILS # (AUTO) 0.1 X10^3/uL (0.0-0.1); BASOPHILS % (AUTO) 0.9 % (0.2-1.0); EOSINOPHILS # (AUTO) 0.2 x10^3/uL (0.0-0.2); EOSINOPHILS % (AUTO) 1.8 % (0.9-2.9); HEMATOCRIT 35.1 % (42.0-54.0); HEMOGLOBIN 11.6 g/dL (13.5-18.0); LYMPHOCYTES # (AUTO) 1.8 X10^3/uL (1.3-2.9); LYMPHOCYTES % (AUTO) 16.6 % (21.0-51.0); MEAN PLATELET VOLUME 7.7 fL (7.4-11.0); MONOCYTES % (AUTO) 9.4 % (0.0-13.0); NEUTROPHILS # (AUTO) 7.9 x10^3/uL (2.2-4.8); NEUTROPHILS % (AUTO) 71.3 % (42.0-75.0); PLATELET COUNT 186 X10^3/uL (150.0-450.0); RED BLOOD COUNT 3.73 X10^6/uL (4.7-6.0); RED CELL DISTRIBUTION WIDTH 14.3 % (11.6-16.5); WHITE BLOOD COUNT 11.1 X10^3/uL (3.6-10.0)
[2018-11-11] MEDS: ZOSYN VIAL 3.375 GRAMS 3.375 G in NS 100 ML IV + SPIKE MINIBAG* 100 ML IV SCH (05:26)
[2018-11-11 05:33] LABS: ALANINE AMINOTRANSFERASE 12 Units/L (12-78); ALBUMIN 2.6 g/dL (3.4-5.0); ALKALINE PHOSPHATASE 64 Units/L (46-116); ASPARTATE AMINO TRANSFERASE 13 Units/L (15-37); BLOOD UREA NITROGEN 4 mg/dL (7-18); CALCIUM 8.5 mg/dL (8.5-10.1); CARBON DIOXIDE 22.5 mmol/L (21-32); CHLORIDE 98 mmol/L (98-107); COR CA(FOR HYPOALB) 9.6 mg/dL (8.5-10.1); CREATININE 0.66 mg/dL (0.70-1.30); SODIUM 129 mmol/L (136-145); TOTAL PROTEIN 6.1 g/dL (6.4-8.2); eGFR NON BLACK RACES > 60 (>60)
[2018-11-11] MEDS: MORPHINE SULFATE INJ 2 MG INJ IVP PRN (07:30)
[2018-11-11] MEDS: MEGACE PO SCH (08:17)
[2018-11-11] MEDS: LANOXIN PO SCH (08:17)
[2018-11-11] MEDS: LEVAQUIN PREMIX IV 750 MG 750 MG/150 ML BAG IV SCH (08:17)
[2018-11-11] MEDS: PROTONIX TAB 40 MG PO SCH (08:17)
[2018-11-11] MEDS: PROPAFENONE 325 MG PO SCH (08:18)
[2018-11-11] MEDS: MILK OF MAGNESIA PO SCH (08:18)
[2018-11-11 08:26] VITALS: BP 142/69
[2018-11-11] MEDS: DUONEB 0.5 MG/3 MG NEB SCH (09:03)
[2018-11-11] MEDS: PERCOCET TAB 5/325 MG PO PRN (11:54)
--- NOTE | 2018-11-24 22:49 | DR.CARTERD ---
- Discharge Summary for: Discharge Summary for Date of:: 11/11/18 - Admission Date Date of Admission: 11/03/18 - Admission Diagnoses Admission Diagnosis: (1) Fecal impaction (2) Abdominal pain (3) CHF (congestive heart failure) (4) Esophageal cancer (5) COPD (chronic obstructive pulmonary disease) (6) History of deep venous thrombosis or pulmonary embolus (7) Atrial fibrillation (8) Nausea & vomiting - Discharge Date Discharge Date: 11/11/18 - Discharge Diagnoses Discharge Diagnosis: (1) Fecal impaction (2) Abdominal pain (3) CHF (congestive heart failure) (4) Esophageal cancer (5) COPD (chronic obstructive pulmonary disease) (6) History of deep venous thrombosis or pulmonary embolus (7) Atrial fibrillation (8) Nausea & vomiting - Hospital Course Hospital Course: DAY ONE, PATIENT IS A 73 YEAR OLD WM WHO WAS ADMITTED FROM THE ER WITH CO LOWER ABDOMINAL PAIN WITH CO CONSTIPATION AND POOR APPETITE. PT HAS CHRONIC CONSTIPATION DUE TO OPIOID PAIN CONTROL. PT HAS PMH OF OA, HTN, AFIB. PT HAD CT ER WITH FECAL IMPACTION. PT ADMITTED FOR TREATMENT OF ACUTE ILLNESS. DAY TWO, 73 WM ER ADMISSION ON 11/03 WITH INTRACTABLE ABDOMINAL PAIN AND CONSTIPATION. PT HAD CT WITH FECAL IMPACTION, NURSING STAFF REPORTED MINIMAL BM, REPEATED KUB WITHOUT FINDING OF CONSTIPATION. PT CONTINUED WITH CO N/V. WE CONTINUED CLEAR LIQUIDS AND GOLYTLEY. REPEATED AM KUB AND PAIN CONTROL. DAY FOUR, 73 WM ER ADMISSION ON 11/03 WITH INTRACTABLE ABDOMINAL PAIN AND CONSTIPATION WITH CO NAUSEA WITH IMPROVED VOMTING. PT DENIED ABDOMINAL PAIN BUT CO BACK PAIN. NURSING STAFF REPORTED PT HAS HAD MULTPLE WATERY BM'S AFTER GOLYTELY. PT DENIED ANY VOMITING AND HAS RESUMED PO PAIN CONTROL, PT CONTINUED TO CO LOWER BACK PAIN AND GENERALIZED WEAKNESS. PT NA 132 AND WBC WERE SLIGHTLY INCREASED TODAY 12.2, AFEBRILE. STARTED ON ZOSYN AND CT ABD/PELVIS WITH CONTRAST Q AM, SOFT DIET UNTIL MID NIGHT TOLERATED. DAY SIX, Mr. Ch is a 73-year-old white male who was admitted on 11/03/18, with intractable abdominal pain, nausea, vomiting, and fecal impaction, as well as possible gastric outlet obstruction. Since a dmission, the patient has had regular bowel movements and resolution of fecal impaction, as well as improvement of nausea and vomiting. The patient was started on Megace to help with his anorexia. He also had a CT with contrast revealing the patients post cervical changes following treatment for esophageal cancer. He was evaluated by Dr. Goss as well to rule out any acute surgical intervention if necessary. This morning, the patients white count WAS stable at 10.1, hemoglobin 11.1. Sodium continueD to be slightly decreased at 131, potassium at 3.3, and renal function WAs within normal range. His creatine WAs 0.64. The patient continueD to complain of lower back pain and improving appetite. He stateD that he is ready to go home. The patients family stateD that he is speaking of heaven. He WAs wanting to go home with hospice. The patient stateD that if he could have pain control and control of constipation, he would be ready to go home. He did have abnormal findings on his CT of the lung nodule and we ordered a CT of his chest with contrast to be performed. The patient WAs awake, alert, and oriented. He WAs calm and in no acute distress. Abdomen WAs soft with hypoactive bowel sounds to all four quadrants. The patient dID have diffuse diminished lung bases as well. No productive cough on exam. Heart revealED regular rate of rhythm. No lower extremity edema noted. The patient dID have diffuse muscle atrophy to upper and lower extremities, as well as C-spine, T-spine, and L-spine tenderness. DAY EIGHT, IS A 73 YEAR OLD PATIENT OF OURS WHO WAS ADMITTED ON 11/03/18 FOR ABDOMINAL PAIN AND FECAL IMPACTION. HE HAS A HISTORY OF ESOPHAGEAL CANCER, FOR WHICH HE IS ON OPIOIDS FOR PAIN CONTROL. AN ABDOMEN/PELVIS CT WAS OBTAINED EARLIER IN THE WEEK AND REVEALED A 1.3CM SPICULATED LEFT UPPER LOBE NODULE WHICH IS CONCERNING FOR MALIGNANCY. PET SCAN RECOMMENDED. TODAY, HE WAS ALERT AND ORIENTED, LYING IN BED ON MORNING ROUNDS. HE CONTINUED WITH NAUSEA AND MILD ABDOMINAL PAIN. HE ALSO CONTINUED WITH A NON-PRODUCTIVE COUGH AND LOWER BACK PAIN. ON EXAMINATION, HEART WAS REGULAR IN RATE AND RHYTHM. BILATERAL LUNGS WERE NOTED WITH DIMINISHED LUNG SOUNDS THROUGHOUT. ABDOMEN WAS FLAT, SOFT, AND NOTED WITH MILD, DIFFUSE TENDERNESS. VITALS THIS MORNING WERE: 98.1-91-20-97%-129/76. LABS WERE OBTAINED. ABNORMAL LAB VALUES INCLUDED THE FOLLOWING: RBC 3.65, HGB 11.4, HCT 34.3, SODIUM 129, CHLORIDE 96, BUN 3, CALCIUM 8.3, AST 13, TOTAL PROTEIN 6.0, ALBUMIN 2.5, INR 1.47. WE OBTAINED A KUB THIS MONRING. IT REVEALED NO ACUTE DISEASE IN THE ABDOMEN DEMONSTRATED. HE HAS RECEIVED IV HYDRATION, IV ANTIBIOTICS, AND PPI THERAPY. WE CONTINUED WITH CURRENT PLAN OF CARE TODAY. WE FOLLOWED UP WITH AM LABS AND CONTINUED TO MONITOR. DAY NINE, PATIENT LAYING IN BED ALERT AND ORIENTED ON MORNING ROUNDS THIS AM. PATIENT WAS REQUESTING TO GO HOME. KUB REVEALED No acute disease in the abdomen is demonstrated. LABS WERE IN NORMAL RANGE FOR PATIENT. VITALS WERE STABLE. NO SIGNS AND SYMPTOMS OF ACUTE DISTRESS WERE NOTED. WE PLANNED FOR DISCHARGE. INSTRUCTIONS FOR MEDICATIONS AND FOLLOW UP WERE DISCUSSED WITH PATIENT AND FAMILY, BOTH VOICED UNDERSTANDING. PATIENT WAS DISCHARGED HOME IN STABLE CONDITION WITH FAMILY MEMBER. - Discharge Medications Discharge Medications: Home Medication List digoxin 0.125 mg PO DAILY 11/03/18 [History] pantoprazole 40 mg PO DAILY 11/03/18 [History] ranitidine HCl 150 mg PO HS 11/03/18 [History] tamsulosin 0.4 mg PO HS 11/03/18 [History] rosuvastatin [Crestor] 5 mg PO Q OTHER DAY 11/05/18 [History] amoxicillin-pot clavulanate [Augmentin] 1 tab PO BID #14 tab 11/11/18 [Rx] polyethylene glycol 3350 [Miralax] 17 g PO QDAY #1 bottle 11/11/18 [Rx] venlafaxine [Effexor XR] 37.5 mg PO QDAY #30 cap 11/11/18 [Rx] Prescriptions: amoxicillin-pot clavulanate [Augmentin] Enrico Simental polyethylene glycol 3350 [Miralax] Enrico Simental venlafaxine [Effexor XR] Enrico Simental Ambulatory Orders propafenone 325 mg PO BID 09/03/16 warfarin 2.5 mg PO DAILY 09/03/16 methotrexate sodium 4 tab PO WEEKLY 10/29/16 - Discharge Disposition Discharge Disposition: PATIENT TO FOLLOW UP IN OUR OFFICE IN ONE WEEK.
== END 2018-11-11 12:10 | disposition home or self-care (01) | DRG 389 ==
LOC: ER 10:37 → MED/SURG 10:37
PROVIDERS: ADMIT Internal Medicine; ATTEND Internal Medicine
DX: K21.9 Gastro-esophageal reflux disease without esophagitis; Z86.718 Personal history of other venous thrombosis and embolism; J44.9 Chronic obstructive pulmonary disease, unspecified; I50.9 Heart failure, unspecified; R10.84 Generalized abdominal pain; C15.9 Malignant neoplasm of esophagus, unspecified; E46 Unspecified protein-calorie malnutrition; E86.0 Dehydration; E87.1 Hypo-osmolality and hyponatremia; R79.1 Abnormal coagulation profile; E87.6 Hypokalemia; I48.91 Unspecified atrial fibrillation; K56.41 Fecal impaction; J90 Pleural effusion, not elsewhere classified; R26.89 Other abnormalities of gait and mobility; R91.1 Solitary pulmonary nodule; R11.2 Nausea with vomiting, unspecified
CPT/HCPCS: 36415; 36600; 71250; 74000; 74018; 74177; 80053; 80162; 81001; 82803; 83605; 83735; 84132; 85025; 85610; 87070; 87077; 87186; 87205; 93005; 94640; 94669; 94760; 96365; 96367; 96374; 97110; 97116; 97162; 97165; 97530; 99218; 99231; 99283; 99284; A4222; S0179; G0378; J1940; J1956; J2270; J2405; J2543; J3475; J7030; J7050; J7620